=== PATIENT | female | born 1960 | race Caucasian/White ===

== ENCOUNTER 2020-05-14 14:10 | Inpatient (IN) | payer SELFPAY ==
[2020-05-14] VITALS (10 sets, daily range): BP systolic 125–172; BP diastolic 39–99; PULSE 57–78; RESP 14–21; TEMP 36.5–36.6; O2SAT 95–98; BMI 41.6
--- NOTE | 2020-05-14 14:29 | CTR_ITS ---
PROCEDURE INFORMATION: Exam: CT Head Without Contrast Exam date and time: 05/14/2020 2:35 PM Age: 59 years old Clinical indication: Weakness, facial; Additional info: Symptoms of acute stroke TECHNIQUE: Imaging protocol: Computed tomography of the head without contrast. Radiation optimization: All CT scans at this facility use at least one of these dose optimization techniques: automated exposure control; mA and/or kV adjustment per patient size (includes targeted exams where dose is matched to clinical indication); or iterative reconstruction. COMPARISON: No relevant prior studies available. RADIATION DOSE METRICS: Total DLP (mGy-cm): 740.21 FINDINGS: Brain: Normal. No hemorrhage. Unremarkable white matter. No mass effect. Cerebral ventricles: No ventriculomegaly. Bones/joints: Unremarkable. No acute fracture. Paranasal sinuses: There is mild mucosal thickening in the sinuses. Mastoid air cells: There is a trace amount of fluid in the left mastoid air cells. The right mastoid air cells are clear. Soft tissues: Unremarkable. CT/CT head wo con* [id number] IMPRESSION: No acute intracranial abnormality. Radiation Dose CTDIVOL = (mGy): DLP = 740.21 (mGy-cm)
--- NOTE | 2020-05-14 14:29 | ECG_ITS ---
[facility] Test Date: 2020-05-14 Pat Name: Temi Moulton Department: Room: Gender: Female Manager Investigations: : 1960 Requested By: Brittany Mariscal I Order Number: [id number] Reading MD: ADDIE PUENTE Measurements Intervals [place] Rate: 62 P: 47 [place]: 159 QRS: 48 QRSD: 71 T: 51 QT: 403 QTc: 412 Interpretive Statements SINUS RHYTHM WITH MARKED SINUS ARRHYTHMIA LOW QRS VOLTAGE IN PRECORDIAL LEADS [QRS DEFLECTION < 1.0 mV IN CHEST LEADS] No previous ECG available for comparison Electronically Signed On 05-14-2020 18:26:29 CDT by ADDIE PUENTE [id number]
--- NOTE | 2020-05-14 14:29 | XRR_ITS ---
PROCEDURE INFORMATION: Exam: XR Chest, 1 View Exam date and time: 05/14/2020 2:32 PM Age: 59 years old Clinical indication: Dyspnea; Additional info: Neuro symptoms TECHNIQUE: Imaging protocol: XR of the chest Views: 1 view. COMPARISON: No relevant prior studies available. FINDINGS: Lungs: There is interstitial prominence compatible with fibrosis, bronchitis, viral pneumonitis or mild interstitial edema. There is no lobar consolidation. A few scattered tiny calcified granulomata are noted. Pleural space: Unremarkable. No pleural effusion. No pneumothorax. Heart/Mediastinum: Unremarkable. No cardiomegaly. Bones/joints: No acute abnormality. XR/XR chest 1V portable [id number] IMPRESSION: There is interstitial prominence compatible with fibrosis, bronchitis, viral pneumonitis or mild interstitial edema.
--- NOTE | 2020-05-14 14:38 | W.ED.NEUROSD ---
HPI - Neuro Symptoms/Deficit General: Chief Complaint: Neuro Symptoms/Deficit Stated Complaint: possible stroke Time Seen by Provider: 05/14/20 14:21 Source: patient Mode of arrival: ambulatory Limitations: no limitations History of Present Illness: HPI Narrative: 59-year-old lady presents to the emergency department with complaints of neuro symptoms. She states that about 9 PM last night while at work she developed right-sided weakness especially in her lower extremity along with tingling. Symptoms improved so she just went home and did not seek care. This morning she had a continuation of the symptoms until decided to be seen in the emergency department Onset (ago): hour(s) (17) Last Observed Normal: 21:00 Location: right face, right arm and right leg History of same: No Severity: mild Quality: weak, tingling and improving Relieving factors: none Exacerbating factors: none Context: sudden onset On Anticoagulants: No Associated symptoms: Deny chest pain, cough, diaphoresis, fevers/chills, headache(s), anorexia, malaise, nausea, seizures, short of breath, syncope, tingling, vertigo, vomiting or weakness Treatments Prior to Arrival: none Review of Systems General: Reports: 10 or more systems reviewed and unremarkable except in HPI and below Const: Denies: malaise or diaphoresis Eyes: Denies: change in vision or blurry vision ENMT: Denies: throat pain, enlarged tonsils, odynophagia, hoarseness, mouth pain or swelling of lips/tongue Card: Denies: chest pain or syncope Resp: Denies: dyspnea, productive cough or non-productive cough GI: Denies: nausea or vomiting : Denies: flank pain, difficulty voiding, dysuria, urinary frequency, urinary urgency or urinary hesitancy Musc: Denies: neck pain, back pain or extremity swelling Skin/Breast: Denies: rash, pruritus or erythema Neuro: Denies: headache(s) or vertigo Endo: Denies: polyuria, polydipsia or tired all the time [facility] ED PFSH: Medical History (Updated 05/14/20 @ 22:14 by Brittany Mariscal MD, [facility]) No pertinent past medical history Surgical History (Updated 05/14/20 @ 17:36 by Chucky Pleitez MD) History of carpal tunnel surgery of right wrist Family History (Updated 05/14/20 @ 17:37 by Chucky Pleitez MD) Mother CAD (coronary artery disease) Chronic kidney disease (CKD) Lupus Father CAD (coronary artery disease) Brother CAD (coronary artery disease) Sister CAD (coronary artery disease) Social History (Updated 05/14/20 @ 17:36 by Chucky Pleitez MD) Smoking and tobacco status: current every day smoker Alcohol intake: never Substance/Drug Use: current Other substance/drug use details: Oxycodone for pain, does not prescribed NIH stroke score NIHSS: Level Of Consciousness - 1a: 0 Level Of Consciousness Questions - 1b: Both Correct Level Of Consciousness Commands - 1c: Both Correct Best Gaze - 2: Normal Visual Aguilar - 3: No Visual Loss Facial Palsy - 4: Minor Paralysis Motor Arm Right - 5: No Drift Motor Arm Left - 5: No Drift Motor Leg Right - 6: No Drift Motor Leg Left - 6: No Drift Limb Ataxia - 7: Absent Sensory - 8: Mild To Moderate Loss Best Language - 9: No Aphasia Dysarthia - 10: Normal Extinction And Inattention - 11: 0 Score: Total Score: 2 Physical Exam Const: COMMON NORMALS: no acute distress, average body habitus, patient oriented x3, no limitations, healthy appearing, alert and well nourished HENMT: COMMON NORMALS: normocephalic, atraumatic and moist oral mucous membranes HEAD & SCALP: normocephalic and atraumatic OTHER: Right facial droop Eye: COMMON NORMALS: Equal, round and reactive pupils present, EOMs intact bilaterally, conjunctivae normal and no scleral icterus CONJUNCTIVA: Yes conjunctivae normal PUPIL: Yes Equal, round and reactive pupils present Neck/C-Spine: COMMON NORMALS: full ROM, supple, no meningeal signs, no JVD and No carotid bruits Resp: COMMON NORMALS: normal respiratory effort, No retractions, No use of accessory muscles, clear to auscultation bilaterally and percussion normal AUSCULTATION: clear to auscultation bilaterally PERCUSSION: percussion normal Cardio: COMMON NORMALS: no JVD, regular rate, regular rhythm, S1 normal heart sound present, S2 normal heart sound present, No gallops present (Cardio), No clicks present (Cardio), No murmurs present (Cardio), No rub (Cardio) and Peripheral pulses 2+ throughout RATE: regular rate RHYTHM: regular rhythm HEART SOUNDS: S1 normal heart sound present and S2 normal heart sound present PERIPHERAL PULSES: Peripheral pulses 2+ throughout GI: COMMON NORMALS: Normal to inspection, nondistended, normoactive bowel sounds present, Soft to palpation, non-tender, No hepatosplenomegaly present, no masses and no bruits PALPATION: Yes Soft to palpation and Yes No hepatosplenomegaly present Extremity: COMMON NORMALS: normal to inspection, full ROM, capillary refill normal, no calf tenderness and no pedal edema Neuro: COMMON NORMALS: patient oriented x3 SENSORIUM/ORIENTATION: Yes alert MENINGEAL SIGNS: Yes no meningeal signs Skin: COMMON NORMALS: no rashes or lesions noted, no wounds, turgor normal, no jaundice, no petechiae and no mottling GENERAL SKIN EXAM: no rashes or lesions noted and turgor normal Course ED course: Patient remained stable in the emergency department, she was given intravenous calcium and potassium. She was advised to be admitted for further evaluation and management. The patient initially did not want to be admitted to the hospital but after I explained to her the seriousness of her illness and the potential consequences of non-treatment she agreed to stay. Consultations: Consultation #1: Dr. Sellers, hospitalist. He kindly accepted the patient to his service. Vital Signs: Vital signs: Vital Signs Temperature 97.9 F 05/14/20 19:38 Pulse Rate 64 05/14/20 19:48 Respiratory Rate 18 05/14/20 19:48 Blood Pressure 132/39 05/14/20 21:15 Pulse Oximetry 97 05/14/20 19:48 MDM - Neuro Symptoms/Deficit MDM Narrative: Medical decision making narrative: 59-year-old female patient who presents to the emergency department with concerns of a CVA that occurred yesterday. Evaluation in the emergency department showed right facial droop, NIHSS of 2, severe hypocalcemia, hypokalemia, and she was admitted to the hospital for further evaluation and management. Medical Records: Attestation: I reviewed the patient's medical records. Lab Data: Attestation: I reviewed the patient's lab results. Labs: Lab Results 05/14/20 05/14/20 05/14/20 Range/Units 14:34 14:34 14:34 WBC (4.0-10.0) 10^3/ uL RBC (4.1-5.3) 10^6/u L Hgb (11.5-15.3) g/dL Hct (37.0-47.0) % MCV (81-99) fL MCH (28.0-34.0) pg MCHC (30.0-36.0) g/dL RDW (12.1-15.1) % Plt Count (130-400) 10^3/c mm MPV (7.4-10.4) fL Neut % (Auto) % Lymph % (Auto) % [place] % (Auto) % Eos % (Auto) % Baso % (Auto) % Neut # (Auto) (1.8-7.7) 10^3/u L Lymph # (Auto) (0.8-4.8) 10^3/u L [place] # (Auto) (0.2-0.9) 10^3/u L Eos # (Auto) (0.0-0.8) 10^3/u L Baso # (Auto) (0.0-0.1) 10^3/u L Nucleated RBC % (a uto) % Nucleated RBCs # /100WBC PT (12.1-14.9) SECO NDS INR (0.8-1.2) APTT (23.9-36.7) SECO NDS Sodium (136-145) mmol/L Potassium (3.5-5.1) mmol/L Chloride (98-107) mmol/L Carbon Dioxide (22-29) mmol/L Anion Gap (5-19) BUN (6-20) mg/dL Creatinine (0.5-0.9) mg/dL GFR Calculation (90-130) mL/min Glucose (65-115) mg/dL Calculated Osmolal ity (285-295) mOsm/k g Calcium (8.5-10.5) mg/dL Phosphorus (2.5-4.5) mg/dL Magnesium (1.7-2.3) mg/dL Total Bilirubin (0.15-1.2) mg/dL AST (0-32) U/L ALT (0-33) U/L Alkaline Phosphata se (35-105) IU/L Total Protein (6.6-8.7) g/dL Albumin (3.5-5.2) g/dL Globulin (1.3-4.6) g/dL Urine Color Yellow (Yellow) Urine Appearance Clear (CLEAR) Urine pH 5 (5-7) Ur Specific Gravit y 1.010 (1.005-1.030) Urine Protein Neg (Negative) Urine Glucose (UA) Norm (Normal) Urine Ketones Negative (Negative) Urine Blood 2+ H (Negative) Urine Nitrate Negative (Negative) Urine Bilirubin Neg (Negative) Urine Urobilinogen Norm (Negative) mg/dL Ur Leukocyte Damari ase Negative (Negative) Urine RBC 0-4 H (0-2) /hpf Urine WBC Rare (0-5) /hpf Ur Squamous Epith Cells 0-4 H (0-5) /hpf Amorphous Sediment Not Reportable Urine Bacteria Trace (NONE) /hpf Ur Random Sodium 104 mmol/L Ur Random Potassiu m 14 mmol/L Ur Random Chloride 101 mmol/L Ur Random Calcium mg/dL Urine Opiates Scre en Negative (Negative) ng/mL Ur Barbiturates Sc reen Negative (Negative) ng/mL Ur Phencyclidine S crn Negative (Negative) ng/mL Ur Amphetamines Sc reen Negative (Negative) ng/mL U Benzodiazepines Scrn Negative (Negative) ng/mL Urine Cocaine Scre en Negative (Negative) ng/mL U Marijuana (THC) Screen Negative (Negative) ng/mL SARS-CoV-2 Ag (Rap id) (Negative) 05/14/20 05/14/20 05/14/20 Range/Units 14:34 14:35 14:35 WBC 6.2 (4.0-10.0) 10^3/ uL RBC 3.49 L (4.1-5.3) 10^6/u L Hgb 10.6 L (11.5-15.3) g/dL Hct 33.0 L (37.0-47.0) % MCV 94.6 (81-99) fL MCH 30.4 (28.0-34.0) pg MCHC 32.1 (30.0-36.0) g/dL RDW 12.6 (12.1-15.1) % Plt Count 172 (130-400) 10^3/c mm MPV 9.2 (7.4-10.4) fL Neut % (Auto) 48.0 % Lymph % (Auto) 40.8 % [place] % (Auto) 6.6 % Eos % (Auto) 2.6 % Baso % (Auto) 0.6 % Neut # (Auto) 2.98 (1.8-7.7) 10^3/u L Lymph # (Auto) 2.5 (0.8-4.8) 10^3/u L [place] # (Auto) 0.4 (0.2-0.9) 10^3/u L Eos # (Auto) 0.2 (0.0-0.8) 10^3/u L Baso # (Auto) 0.0 (0.0-0.1) 10^3/u L Nucleated RBC % (a uto) 0 % Nucleated RBCs # 0.0 /100WBC PT 14.90 (12.1-14.9) SECO NDS INR 1.14 (0.8-1.2) APTT 27.4 (23.9-36.7) SECO NDS Sodium (136-145) mmol/L Potassium (3.5-5.1) mmol/L Chloride (98-107) mmol/L Carbon Dioxide (22-29) mmol/L Anion Gap (5-19) BUN (6-20) mg/dL Creatinine (0.5-0.9) mg/dL GFR Calculation (90-130) mL/min Glucose (65-115) mg/dL Calculated Osmolal ity (285-295) mOsm/k g Calcium (8.5-10.5) mg/dL Phosphorus (2.5-4.5) mg/dL Magnesium (1.7-2.3) mg/dL Total Bilirubin (0.15-1.2) mg/dL AST (0-32) U/L ALT (0-33) U/L Alkaline Phosphata se (35-105) IU/L Total Protein (6.6-8.7) g/dL Albumin (3.5-5.2) g/dL Globulin (1.3-4.6) g/dL Urine Color (Yellow) Urine Appearance (CLEAR) Urine pH (5-7) Ur Specific Gravit y (1.005-1.030) Urine Protein (Negative) Urine Glucose (UA) (Normal) Urine Ketones (Negative) Urine Blood (Negative) Urine Nitrate (Negative) Urine Bilirubin (Negative) Urine Urobilinogen (Negative) mg/dL Ur Leukocyte Damari ase (Negative) Urine RBC (0-2) /hpf Urine WBC (0-5) /hpf Ur Squamous Epith Cells (0-5) /hpf Amorphous Sediment Urine Bacteria (NONE) /hpf Ur Random Sodium mmol/L Ur Random Potassiu m mmol/L Ur Random Chloride mmol/L Ur Random Calcium 7.6 mg/dL Urine Opiates Scre en (Negative) ng/mL Ur Barbiturates Sc reen (Negative) ng/mL Ur Phencyclidine S crn (Negative) ng/mL Ur Amphetamines Sc reen (Negative) ng/mL U Benzodiazepines Scrn (Negative) ng/mL Urine Cocaine Scre en (Negative) ng/mL U Marijuana (THC) Screen (Negative) ng/mL SARS-CoV-2 Ag (Rap id) (Negative) 05/14/20 05/14/20 05/14/20 Range/Units 14:35 14:35 15:25 WBC (4.0-10.0) 10^3/ uL RBC (4.1-5.3) 10^6/u L Hgb (11.5-15.3) g/dL Hct (37.0-47.0) % MCV (81-99) fL MCH (28.0-34.0) pg MCHC (30.0-36.0) g/dL RDW (12.1-15.1) % Plt Count (130-400) 10^3/c mm MPV (7.4-10.4) fL Neut % (Auto) % Lymph % (Auto) % [place] % (Auto) % Eos % (Auto) % Baso % (Auto) % Neut # (Auto) (1.8-7.7) 10^3/u L Lymph # (Auto) (0.8-4.8) 10^3/u L [place] # (Auto) (0.2-0.9) 10^3/u L Eos # (Auto) (0.0-0.8) 10^3/u L Baso # (Auto) (0.0-0.1) 10^3/u L Nucleated RBC % (a uto) % Nucleated RBCs # /100WBC PT (12.1-14.9) SECO NDS INR (0.8-1.2) APTT (23.9-36.7) SECO NDS Sodium 144 (136-145) mmol/L Potassium 2.4 L* (3.5-5.1) mmol/L Chloride 119 H (98-107) mmol/L Carbon Dioxide 18 L (22-29) mmol/L Anion Gap 9.4 (5-19) BUN 8 (6-20) mg/dL Creatinine 0.3 L (0.5-0.9) mg/dL GFR Calculation 228.5 H (90-130) mL/min Glucose 77 (65-115) mg/dL Calculated Osmolal ity 295 (285-295) mOsm/k g Calcium 5.5 L* (8.5-10.5) mg/dL Phosphorus 2.0 L (2.5-4.5) mg/dL Magnesium 1.3 L (1.7-2.3) mg/dL Total Bilirubin 0.3 (0.15-1.2) mg/dL AST 38 H (0-32) U/L ALT 43 H (0-33) U/L Alkaline Phosphata se 57 (35-105) IU/L Total Protein 4.0 L (6.6-8.7) g/dL Albumin 2.5 L (3.5-5.2) g/dL Globulin 1.5 (1.3-4.6) g/dL Urine Color (Yellow) Urine Appearance (CLEAR) Urine pH (5-7) Ur Specific Gravit y (1.005-1.030) Urine Protein (Negative) Urine Glucose (UA) (Normal) Urine Ketones (Negative) Urine Blood (Negative) Urine Nitrate (Negative) Urine Bilirubin (Negative) Urine Urobilinogen (Negative) mg/dL Ur Leukocyte Damari ase (Negative) Urine RBC (0-2) /hpf Urine WBC (0-5) /hpf Ur Squamous Epith Cells (0-5) /hpf Amorphous Sediment Urine Bacteria (NONE) /hpf Ur Random Sodium mmol/L Ur Random Potassiu m mmol/L Ur Random Chloride mmol/L Ur Random Calcium mg/dL Urine Opiates Scre en (Negative) ng/mL Ur Barbiturates Sc reen (Negative) ng/mL Ur Phencyclidine S crn (Negative) ng/mL Ur Amphetamines Sc reen (Negative) ng/mL U Benzodiazepines Scrn (Negative) ng/mL Urine Cocaine Scre en (Negative) ng/mL U Marijuana (THC) Screen (Negative) ng/mL SARS-CoV-2 Ag (Rap id) Negative (Negative) Imaging Data^: CXR: Attestation: I personally reviewed and interpreted this imaging study as follows: Radiologist's impression: [address] [place] [address] XRay Report Signed Patient: Sudhir Moulton #: [id number] : 2Acct#:[id number] Age/Sex: 59 / FADM Date: 05/14/20 Loc: ERRoom/Bed: Attending Dr: Ordering Provider/Ordering MD: Brittany Mariscal MD, [facility] [place] Date of Service: 05/14/20 Procedure(s): XR chest 1V portable [id number] Accession Number(s): [id number] Report Number: [id number] PROCEDURE INFORMATION: Exam: XR Chest, 1 View Exam date and time: 05/14/2020 2:32 PM Age: 59 years old Clinical indication: Dyspnea; Additional info: Neuro symptoms TECHNIQUE: Imaging protocol: XR of the chest Views: 1 view. COMPARISON: No relevant prior studies available. FINDINGS: Lungs: There is interstitial prominence compatible with fibrosis, bronchitis, viral pneumonitis or mild interstitial edema. There is no lobar consolidation. A few scattered tiny calcified granulomata are noted. Pleural space: Unremarkable. No pleural effusion. No pneumothorax. Heart/Mediastinum: Unremarkable. No cardiomegaly. Bones/joints: No acute abnormality. XR/XR chest 1V portable [id number] IMPRESSION: There is interstitial prominence compatible with fibrosis, bronchitis, viral pneumonitis or mild interstitial edema. Dictated By:Fior Snow Signed By:Breanne Snow Date/Time:05/14/20 1509 DD/ 1508 CT Head: Attestation: I personally reviewed and interpreted this imaging study as follows: Radiologist's impression: [address] [place] [address] CT Scan Report Signed Patient: Sudhir Moulton #: [id number] : 1960cct#:[id number] Age/Sex: 59 / FADM Date: 05/14/20 Loc: ERRoom/Bed: Attending Dr: Ordering Provider/Ordering MD: Brittany Mariscal MD, [facility] [place] Date of Service: 05/14/20 Procedure(s): CT head wo con* [id number] Accession Number(s): [id number] Report Number: [id number] PROCEDURE INFORMATION: Exam: CT Head Without Contrast Exam date and time: 05/14/2020 2:35 PM Age: 59 years old Clinical indication: Weakness, facial; Additional info: Symptoms of acute stroke TECHNIQUE: Imaging protocol: Computed tomography of the head without contrast. Radiation optimization: All CT scans at this facility use at least one of these dose optimization techniques: automated exposure control; mA and/or kV adjustment per patient size (includes targeted exams where dose is matched to clinical indication); or iterative reconstruction. COMPARISON: No relevant prior studies available. RADIATION DOSE METRICS: Total DLP (mGy-cm): 740.21 FINDINGS: Brain: Normal. No hemorrhage. Unremarkable white matter. No mass effect. Cerebral ventricles: No ventriculomegaly. Bones/joints: Unremarkable. No acute fracture. Paranasal sinuses: There is mild mucosal thickening in the sinuses. Mastoid air cells: There is a trace amount of fluid in the left mastoid air cells. The right mastoid air cells are clear. Soft tissues: Unremarkable. CT/CT head wo con* [id number] IMPRESSION: No acute intracranial abnormality. Radiation Dose CTDIVOL = (mGy): DLP = 740.21 (mGy-cm) Dictated By:Fior Snow Signed By:Breanne Snow Date/Time:05/14/20 150 DD/ [address]: Attestation: I personally reviewed and interpreted this imaging study as follows: Radiologist's impression: [address] [address] [address] Scan Report Signed Patient: Sudhir Moulton #: [id number] : 1960cct#:[id number] Age/Sex: 59 / FADM Date: 05/14/20 [facility] Dr: Ordering Provider/Ordering MD: Chucky Pleitez MD Date of Service: 05/14/20 Procedure(s): CT angio headneck* [id number] Accession Number(s): [id number] Report Number: [id number] PROCEDURE INFORMATION: Exam: CT Angiography Head With Contrast Exam date and time: 05/14/2020 5:31 PM Age: 59 years old Clinical indication: Visual disturbance and weakness; Other visual defect; Patient HX: C/O R sided weakness w facial droop and vision issues; Additional info: Right facial drrop, stroke TECHNIQUE: Imaging protocol: Computed tomography angiography of the head with intravenous contrast. 3D rendering (Not supervised by radiologist): MIP and/or 3D reconstructed images were created by the technologist. Radiation optimization: All CT scans at this facility use at least one of these dose optimization techniques: automated exposure control; mA and/or kV adjustment per patient size (includes targeted exams where dose is matched to clinical indication); or iterative reconstruction. Contrast material: OMNI 350; Contrast volume: 95 ml; Contrast route: INTRAVENOUS (IV); COMPARISON: CT head wo con* [id number] 05/14/2020 2:43 PM RADIATION DOSE METRICS: Total DLP (mGy-cm): 2111.2 FINDINGS: ANTERIOR CIRCULATION: Right internal carotid artery: Calcified plaque in the cavernous portion of the right internal carotid artery without significant stenosis. Right middle cerebral artery: Unremarkable. No occlusion or significant stenosis. No aneurysm. Right anterior cerebral artery: Unremarkable. No occlusion or significant stenosis. No aneurysm. Left internal carotid artery: Calcified plaque in the cavernous portion of the left internal carotid artery without significant stenosis. Left middle cerebral artery: Unremarkable. No occlusion or significant stenosis. No aneurysm. Left anterior cerebral artery: Unremarkable. No occlusion or significant stenosis. No aneurysm. POSTERIOR CIRCULATION: Right vertebral artery: Unremarkable. No occlusion or significant stenosis. No aneurysm. Left vertebral artery: Unremarkable. No occlusion or significant stenosis. No aneurysm. Basilar artery: Unremarkable. No occlusion or significant stenosis. No aneurysm. Right posterior cerebral artery: Unremarkable. No occlusion or significant stenosis. No aneurysm. Left posterior cerebral artery: Unremarkable. No occlusion or significant stenosis. No aneurysm. Brain: No definite mass, mass effect, or midline shift. Cerebral ventricles: Normal. No ventriculomegaly. Bones/joints: Unremarkable. No acute fracture. Soft tissues: Unremarkable. IMPRESSION: 1. No large artery occlusion or stenosis. PROCEDURE INFORMATION: Exam: CT Angiography Neck With Contrast Exam date and time: 05/14/2020 5:31 PM Age: 59 years old Clinical indication: Visual disturbance and weakness; Other visual defect; Patient HX: C/O R sided weakness w facial droop and vision issues; Additional info: Right facial drrop, stroke TECHNIQUE: Imaging protocol: Computed tomography angiography of the neck with intravenous contrast. 3D rendering (Not supervised by radiologist): MIP and/or 3D reconstructed images were created by the technologist. Radiation optimization: All CT scans at this facility use at least one of these dose optimization techniques: automated exposure control; mA and/or kV adjustment per patient size (includes targeted exams where dose is matched to clinical indication); or iterative reconstruction. Contrast material: OMNI 350; Contrast volume: 95 ml; Contrast route: INTRAVENOUS (IV); COMPARISON: CT head wo con* [id number] 05/14/2020 2:43 PM RADIATION DOSE METRICS: Total DLP (mGy-cm): 2111.2 FINDINGS: Right common carotid artery: No stenosis. No dissection or occlusion. Right internal carotid artery: Calcified plaque in the proximal right internal carotid artery with 0% stenosis. Calcified plaque in the proximal right internal carotid artery with 0% stenosis. Right external carotid artery: Calcified plaque with 30% stenosis in the proximal right external carotid artery. Right vertebral artery: No stenosis. No dissection or occlusion. Left common carotid artery: No stenosis. No dissection or occlusion. Left internal carotid artery: No stenosis of the extracranial segment. No dissection or occlusion. Left external carotid artery: Calcified plaque with 20% stenosis in the proximal left external carotid artery. Left vertebral artery: The left vertebral artery originates from the aortic arch. Mild plaque proximally without stenosis. Bones/joints: No acute fracture. Soft tissues: Normal. No significant soft tissue swelling. Lymph nodes: Enlarged left intraparotid lymph node measuring 2.1 cm. Lungs: 3 mm nodules in the upper lobes. CT/CT angio headneck* [id number] IMPRESSION: 1. Calcified plaque in the proximal internal carotid arteries without significant stenosis. 2. 2.1 cm left intraparotid lymph node or possible mass. This could be inflammatory or neoplastic. 3. 3 mm upper lobe nodules. For patients at low risk (minimal or absent history of smoking and of other known risk factors), no routine follow-up is indicated. For patients at high risk (history of smoking or of other known risk factors), consider optional CT Chest at 12 months. (Reference: Nadeen) References: Nadeen Novoa, et al. Guidelines for Management of Incidental Pulmonary Nodules Detected on CT Images: From the Fleischner Society 2017. Radiology. 2017;284(1):228-243. REFERENCES: NASCET CRITERIA. The degree of internal carotid artery stenosis is based on NASCET criteria. Normal is no stenosis. Mild is less than 50% stenosis. Moderate is 50-69% stenosis. Severe is 70% to 99% stenosis. Total occlusion is no detectable patent lumen. Radiation Dose CTDIVOL = (mGy): DLP = 2111.2~2111.2 (mGy-cm) Dictated By:Cricket Carrasco Signed By:Cricket CarrascoSignsedrick Date/Time:05/14/201807 DD/ 06 EKG Data^: EKG 1: Attestation: I personally reviewed and interpreted this EKG as follows: EKG interpretation date: 05/14/20 EKG interpretation time: 14:58 Prior EKG tracings: available for review Interpretation: sinus rhythm with sinus arrhthmia HR [address] changes Discharge Plan Discharge Patient Disposition: Placed in Observation Admit Provider: Chucky Pleitez Clinical Impression: Left-sided cerebrovascular accident (CVA), Hypocalcemia, Hypokalemia Condition: Good Interventions: ED Discharge Assessment Last Done: 05/14/20 19:32 ED Charges Last Done: 05/14/20 19:32 Discharge Date/Time: 05/14/20 19:33 Coding Level of Care Code ED Shell Coremaker for Chg Fwd Exam Comprehensive
[2020-05-14 15:04] LABS: Basophils % 0.6 %; Eosinophils # 0.2 10^3/uL (0.0-0.8); Eosinophils % 2.6 %; Hemoglobin 10.6 g/dL (11.5-15.3); Lymphocytes # 2.5 10^3/uL (0.8-4.8); Lymphocytes % 40.8 %; Mean Corpuscular HGB Conc 32.1 g/dL (30.0-36.0); Mean Corpuscular Hemoglobin 30.4 pg (28.0-34.0); Mean Corpuscular Volume 94.6 fL (81-99); Mean Platelet Volume 9.2 fL (7.4-10.4); Monocytes # 0.4 10^3/uL (0.2-0.9); Monocytes % 6.6 %; Neutrophils # 2.98 10^3/uL (1.8-7.7); Nucleated Red Blood Cells % 0 %; Platelet Count 172 10^3/cmm (130-400); Red Blood Count 3.49 10^6/uL (4.1-5.3); Red Cell Distribution Width 12.6 % (12.1-15.1); White Blood Count 6.2 10^3/uL (4.0-10.0)
[2020-05-14 15:13] LABS: Amphetamines Screen Urine Negative (Negative); Barbiturates Screen Urine Negative (Negative); Benzodiazepines Screen Urine Negative (Negative); Cocaine Screen Urine Negative (Negative); Opiate Screen Urine Negative (Negative); PCP Screen Urine Negative (Negative); THC Screen Urine Negative (Negative)
[2020-05-14 15:24] LABS: INR 1.14 (0.8-1.2)
[2020-05-14 15:25] LABS: Partial Thromboplastin Time 27.4 SECONDS (23.9-36.7)
[2020-05-14 15:32] LABS: Add Urine Culture? No; Add Urine Microscopic? YES; Bacteria Urine TRACE /hpf; Bilirubin Urine Neg (Negative); Blood Urine 2+ (Negative); Glucose Urine UA Norm (Normal); Ketones Urine Negative (Negative); Leukocyte Esterase Urine Negative (Negative); Nitrate Urine Negative (Negative); Protein Urine Neg (Negative); RBC Urine 0-4 /hpf (0-2); Squamous Epithelial Cell Urine 0-4 /hpf (0-5); Urine Appearance Clear (CLEAR); Urine Color Yellow (Yellow); Urobilinogen Urine Norm (Negative); WBC Urine RARE /hpf (0-5); pH Urine 5 (5-7)
[2020-05-14 15:36] LABS: Alanine Aminotransferase 43 U/L (0-33); Albumin Level 2.5 g/dL (3.5-5.2); Alkaline Phosphatase 57 IU/L (35-105); Anion Gap 9.4 (5-19); Aspartate Amino Transferase 38 U/L (0-32); Blood Urea Nitrogen 8 mg/dL (6-20); Carbon Dioxide 18 mmol/L (22-29); Chloride 119 mmol/L (98-107); Globulin 1.5 g/dL (1.3-4.6); Glomerular Filtration Rate 228.5 mL/min (90-130); Glucose 77 mg/dL (65-115); Osmolality Calculated 295 mOsm/kg (285-295); Sodium 144 mmol/L (136-145); Total Bilirubin 0.3 mg/dL (0.15-1.2)
[2020-05-14 16:00] LABS: Calcium 5.5 mg/dL (8.5-10.5); Potassium 2.4 mmol/L (3.5-5.1)
[2020-05-14 16:02] LABS: SARS Covid-2 Antigen Negative (Negative)
[2020-05-14 16:41] LABS: Magnesium 1.3 mg/dL (1.7-2.3)
[2020-05-14] MEDS: potassium chloride premix 100 ML 25 MEQ IV (17:03)
[2020-05-14] MEDS: calcium gluconate 0.1 gm/mL 10% SDV 10mL 1 GM IVP (17:03)
--- NOTE | 2020-05-14 17:20 | CTR_ITS ---
PROCEDURE INFORMATION: Exam: CT Angiography Head With Contrast Exam date and time: 05/14/2020 5:31 PM Age: 59 years old Clinical indication: Visual disturbance and weakness; Other visual defect; Patient HX: C/O R sided weakness w facial droop and vision issues; Additional info: Right facial drrop, stroke TECHNIQUE: Imaging protocol: Computed tomography angiography of the head with intravenous contrast. 3D rendering (Not supervised by radiologist): MIP and/or 3D reconstructed images were created by the technologist. Radiation optimization: All CT scans at this facility use at least one of these dose optimization techniques: automated exposure control; mA and/or kV adjustment per patient size (includes targeted exams where dose is matched to clinical indication); or iterative reconstruction. Contrast material: OMNI 350; Contrast volume: 95 ml; Contrast route: INTRAVENOUS (IV); COMPARISON: CT head wo con* [id number] 05/14/2020 2:43 PM RADIATION DOSE METRICS: Total DLP (mGy-cm): 2111.2 FINDINGS: ANTERIOR CIRCULATION: Right internal carotid artery: Calcified plaque in the cavernous portion of the right internal carotid artery without significant stenosis. Right middle cerebral artery: Unremarkable. No occlusion or significant stenosis. No aneurysm. Right anterior cerebral artery: Unremarkable. No occlusion or significant stenosis. No aneurysm. Left internal carotid artery: Calcified plaque in the cavernous portion of the left internal carotid artery without significant stenosis. Left middle cerebral artery: Unremarkable. No occlusion or significant stenosis. No aneurysm. Left anterior cerebral artery: Unremarkable. No occlusion or significant stenosis. No aneurysm. POSTERIOR CIRCULATION: Right vertebral artery: Unremarkable. No occlusion or significant stenosis. No aneurysm. Left vertebral artery: Unremarkable. No occlusion or significant stenosis. No aneurysm. Basilar artery: Unremarkable. No occlusion or significant stenosis. No aneurysm. Right posterior cerebral artery: Unremarkable. No occlusion or significant stenosis. No aneurysm. Left posterior cerebral artery: Unremarkable. No occlusion or significant stenosis. No aneurysm. Brain: No definite mass, mass effect, or midline shift. Cerebral ventricles: Normal. No ventriculomegaly. Bones/joints: Unremarkable. No acute fracture. Soft tissues: Unremarkable. IMPRESSION: 1. No large artery occlusion or stenosis. PROCEDURE INFORMATION: Exam: CT Angiography Neck With Contrast Exam date and time: 05/14/2020 5:31 PM Age: 59 years old Clinical indication: Visual disturbance and weakness; Other visual defect; Patient HX: C/O R sided weakness w facial droop and vision issues; Additional info: Right facial drrop, stroke TECHNIQUE: Imaging protocol: Computed tomography angiography of the neck with intravenous contrast. 3D rendering (Not supervised by radiologist): MIP and/or 3D reconstructed images were created by the technologist. Radiation optimization: All CT scans at this facility use at least one of these dose optimization techniques: automated exposure control; mA and/or kV adjustment per patient size (includes targeted exams where dose is matched to clinical indication); or iterative reconstruction. Contrast material: OMNI 350; Contrast volume: 95 ml; Contrast route: INTRAVENOUS (IV); COMPARISON: CT head wo con* [id number] 05/14/2020 2:43 PM RADIATION DOSE METRICS: Total DLP (mGy-cm): 2111.2 FINDINGS: Right common carotid artery: No stenosis. No dissection or occlusion. Right internal carotid artery: Calcified plaque in the proximal right internal carotid artery with 0% stenosis. Calcified plaque in the proximal right internal carotid artery with 0% stenosis. Right external carotid artery: Calcified plaque with 30% stenosis in the proximal right external carotid artery. Right vertebral artery: No stenosis. No dissection or occlusion. Left common carotid artery: No stenosis. No dissection or occlusion. Left internal carotid artery: No stenosis of the extracranial segment. No dissection or occlusion. Left external carotid artery: Calcified plaque with 20% stenosis in the proximal left external carotid artery. Left vertebral artery: The left vertebral artery originates from the aortic arch. Mild plaque proximally without stenosis. Bones/joints: No acute fracture. Soft tissues: Normal. No significant soft tissue swelling. Lymph nodes: Enlarged left intraparotid lymph node measuring 2.1 cm. Lungs: 3 mm nodules in the upper lobes. CT/CT angio headneck* [id number] IMPRESSION: 1. Calcified plaque in the proximal internal carotid arteries without significant stenosis. 2. 2.1 cm left intraparotid lymph node or possible mass. This could be inflammatory or neoplastic. 3. 3 mm upper lobe nodules. For patients at low risk (minimal or absent history of smoking and of other known risk factors), no routine follow-up is indicated. For patients at high risk (history of smoking or of other known risk factors), consider optional CT Chest at 12 months. (Reference: Nadeen) References: Nadeen Novoa, et al. Guidelines for Management of Incidental Pulmonary Nodules Detected on CT Images: From the Fleischner Society 2017. Radiology. 2017;284(1):228-243. REFERENCES: NASCET CRITERIA. The degree of internal carotid artery stenosis is based on NASCET criteria. Normal is no stenosis. Mild is less than 50% stenosis. Moderate is 50-69% stenosis. Severe is 70% to 99% stenosis. Total occlusion is no detectable patent lumen. Radiation Dose CTDIVOL = (mGy): DLP = 2111.2~2111.2 (mGy-cm)
[2020-05-14 17:22] LABS: Ionized Calcium 1.1 mmol/L (1.1-1.4)
--- NOTE | 2020-05-14 17:29 | P.HP_ITS ---
Providers/Chief Complaint Chief Complaint: possible stroke History of Present Illness Temi Moulton is a 59 year old female with no significant past medical history, history of smoking, who presents to [facility] due to a 24-hour history of right-sided blurry vision, right lower extremity heaviness, right arm paresthesias, perioral numbness, generalized weakness. Patient tells me that she does not have health insurance, has not seen a physician in many years. She denies any significant medical history. No recent hospitalizations. She tells me that yesterday she was working at [employer] at roughly 8 PM she noticed that her right leg felt heavy, she was having difficulty maneuvering, she just did not feel right, she sat down, at that time her right hand felt numbness and tingling, she had perioral numbness, and she had right-sided blurry vision and difficulty seeing out of the right eye. She decided to go home, and her sister picked her up from home, which she got home, a few hours after at the right lower extremity weakness had returned back to normal, her right blurry return to near normal, but still has some right hand numbness and perioral numbness. Ansley ent went to bed. She woke up in the morning, nothing hard the ordinary, still has some perioral numbness and right hand numbness, was able to carry out her daily activities, her sister checked up on her, when she noticed right facial drooping, and some mild slurring of her speech, so she advised her to come to the emergency room. Here in the ER patient's NIH stroke scale is 2, she is out of TPA window, out of window for endovascular retrieval, she had a mild right facial droop, very mild slurring of her speech, no other focal neurologic deficits, head CT was negative for acute stroke or intracranial hemorrhage, no atrial fibrillation events, she was also found to be severely hypocalcemic, hypokalemic, hypomagnesemic. Patient denies any significant personal or family history of genetic renal disease, no history of thyroid surgery, no history of radiation treatment, no history of neck surgery. She does have a family history of lupus her mom has lupus. In addition she has an extensive cardiac history in her family, her niece had cardiac surgery when she was 13, she is unsure why. Her sister had double bypass in her 40s. Her brother had cardiac surgery in his early 40s to 50s. Her mom has extensive cardiac history. Her father from cardiac disease. She does state that intermittently she is noted some chest discomfort and palpitations. No more shortness of breath with exertion, no bilateral external edema, no orthopnea, no paroxysmal nocturnal dyspnea. No recent fevers. No recent chills. She does report that about a month ago she had a spider bite to the right eyebrow, was put on Bactrim, she is finished the Bactrim, spider bite has improved. No history of brown recluse spider bite. No history of black spider bite . Review of Systems Const: Denies: fever(s), chills, fatigue or malaise Eyes: Reports: change in vision and blurry vision ENMT: Denies: nasal congestion Card: Reports: palpitations and lightheadedness; Denies: chest pain, edema or dyspnea on exertion Resp: Denies: dyspnea, productive cough, non-productive cough or wheezing GI: Denies: abdominal pain, nausea, vomiting, hematemesis, diarrhea, constipation, hematochezia or melena : Denies: flank pain, dysuria or urinary frequency Musc: Denies: neck pain or back pain Skin/Breast: Denies: rash Neuro: Denies: headache(s), dizziness or vertigo Psych: Denies: anxiety or depression Endo: Denies: polyuria or polydipsia Medications/Allergies Home Medications Medication Instructions Recorded Confirmed Last Taken Type No Known Home Medications 05/14/20 05/14/20 Unknown History Allergies Allergy/AdvReac Type Severity Reaction Status Date / Time clindamycin Allergy ADR-Itching Verified 05/14/20 15:00 Additional Medication Information She uses oxycodone for back pain PFSH Acute PFSH: Medical History (Updated 05/14/20 @ 17:36 by Chucky Pleitez MD) No pertinent past medical history Surgical History (Updated 05/14/20 @ 17:36 by Chucky Pleitez MD) History of carpal tunnel surgery of right wrist Family History (Updated 05/14/20 @ 17:37 by Chucky Pleitez MD) Mother CAD (coronary artery disease) Chronic kidney disease (CKD) Lupus Father CAD (coronary artery disease) Brother CAD (coronary artery disease) Sister CAD (coronary artery disease) Social History (Updated 05/14/20 @ 17:36 by Chucky Pleitez MD) Smoking and tobacco status: current every day smoker Alcohol intake: never Substance/Drug Use: current Other substance/drug use details: Oxycodone for pain, does not prescribed Vitals/I&O/Wt Last Vital Signs Temp 97.7 F 05/14/20 14:20 Pulse 71 05/14/20 17:01 Resp 21 H 05/14/20 17:01 BP 158/90 05/14/20 17:01 Pulse Ox 98 05/14/20 17:01 Weight last 48 hrs Weight 106.594 kg Physical Exam Const: COMMON NORMALS: no acute distress and patient oriented x3 GENERAL APPEARANCE: cooperative and comfortable HENMT: COMMON NORMALS: normocephalic OTHER: Mild right facial droop Eye: COMMON NORMALS: Equal, round and reactive pupils present, EOMs intact bilaterally and no papilledema PUPIL: Yes Equal, round and reactive pupils present Neck/C-Spine: COMMON NORMALS: full ROM, no lymphadenopathy, no JVD and Thyroid normal THYROID: Thyroid normal Lymph: LYMPHATIC: lymphadenopathy (Bilateral cervical lymphadenopathy) Resp: COMMON NORMALS: normal respiratory effort, No retractions, No use of accessory muscles and clear to auscultation bilaterally AUSCULTATION: clear to auscultation bilaterally Cardio: COMMON NORMALS: no JVD, regular rate, regular rhythm, S1 normal heart sound present, S2 normal heart sound present, No gallops present (Cardio), No clicks present (Cardio) and No murmurs present (Cardio) RATE: regular rate RHYTHM: regular rhythm HEART SOUNDS: S1 normal heart sound present and S2 normal heart sound present GI: COMMON NORMALS: Normal to inspection, nondistended, normoactive bowel sounds present, Soft to palpation, non-tender and No hepatosplenomegaly present PALPATION: Yes Soft to palpation and Yes No hepatosplenomegaly present Extremity: COMMON NORMALS: normal to inspection, full ROM and no pedal edema Neuro: COMMON NORMALS: patient oriented x3, CN's II-XII intact bilaterally, moves all extremities and no focal motor deficits Psych: COMMON NORMALS: mental status grossly normal, Normal thought process present and cooperative THOUGHT PROCESS: Normal thought process present Data : 05/14/20 14:35 05/14/20 14:35 A&P Assessment and plan (1) Left-sided cerebrovascular accident (CVA): -Persistent right facial droop mild, mild slurring of speech -CT of the head negative for acute hemorrhage, acute stroke, has sinus arrhythmia on EKG. -Out of TPA window, out of endovascular procedure window PLAN: -Order CT angiogram of the head and neck -Ordered cardic echocardiogram -Telemetry monitoring -Neurochecks -Bedside swallow eval, if passed can have regular diet -PT OT -Allow for permissive hypertension for the next 24 to 48 hours, treat systolic blood pressure greater than 220, diastolic blood pressure of greater than 110 -Give normal saline -Full code -Lovenox for DVT prophylaxis - Status: Acute (2) Arrhythmia: -I am concerned as patient is telemetry has intermittent arrhythmia, heart rates not fast, but it does look irregular, could be sinus arrhythmia -Given her significant electrolyte abnormalities, would prefer for her to go to cardiac stepdown unit, just in case she has A. fib events, as she prone given her electrolyte abnormalities Status: Acute (3) Hypomagnesemia: -Will replace magnesium levels -Measure urine magnesium Status: Acute (4) Hypokalemia: -Will replace potassium level -Monitor QRS, IL intervals, QT -Monitor for arrhythmia -Urine potassium level Status: Acute (5) Hypocalcemia: -Etiology unclear at this point -PTH, vitamin D, ESR, CRP, HEIDI, rheumatoid -Does have a lot of cervical lymphadenopathy, will do ultrasound of the neck -Replace calcium levels -Measure urine calcium -Monitor QT interval Status: Acute (6) Hypertension: Status: Acute Attestations Medical Necessity Statement*: Patient requires hospitalization, inpatient, gre ater than 2 midnights, for left-sided CVA, arrhythmia, hypomagnesemia hypocalcemia, hypokalemia Coding Level of Care Code Acute [employer] [facility] Fwd Diagnoses Left-sided cerebrovascular accident (CVA) I63.9 Arrhythmia I49.9 Hypomagnesemia E83.42 Hypokalemia E87.6 Hypocalcemia E83.51 Hypertension I10
[2020-05-14] MEDS: magnesium sulfate premix 2 GM/50 ML PIGGYBACK IV (17:45)
[2020-05-14] MEDS: iohexol 350 mg/mL 100 mL Btl IV (17:47)
[2020-05-14 18:04] LABS: Erythrocyte Sedimentation Rate 25 mm/hr (0-15)
[2020-05-14 18:27] LABS: Alanine Aminotransferase 77 U/L (0-33); Albumin Level 4.2 g/dL (3.5-5.2); Alkaline Phosphatase 99 IU/L (35-105); Blood Urea Nitrogen 11 mg/dL (6-20); Calcium 9.3 mg/dL (8.5-10.5); Carbon Dioxide 25 mmol/L (22-29); Chloride 100 mmol/L (98-107); Globulin 2.5 g/dL (1.3-4.6); Glomerular Filtration Rate 126.7 mL/min (90-130); Glucose 90 mg/dL (65-115); Osmolality Calculated 279 mOsm/kg (285-295); Sodium 135 mmol/L (136-145); Total Bilirubin 0.5 mg/dL (0.15-1.2); Total Protein 6.7 g/dL (6.6-8.7)
[2020-05-14 18:30] LABS: Anion Gap 14.5 (5-19)
[2020-05-14 18:31] LABS: Aspartate Amino Transferase 78 U/L (0-32); Potassium 4.5 mmol/L (3.5-5.1)
[2020-05-14 18:38] LABS: Calcium 9.4 mg/dL (8.5-10.5); Parathyroid Hormone 62.9 pg/mL (15-65)
[2020-05-14 18:41] LABS: Calcium Urine Random 7.6 mg/dL
[2020-05-14 18:43] LABS: Potassium, Radom Urine 14 mmol/L; Urine Random Chloride 101 mmol/L; Urine Random Sodium 104 mmol/L
[2020-05-14 18:47] LABS: 25 Hydroxy Vitamin D 14 ng/mL (30-100); C Reactive Protein 5.5 mg/L (0.0-4.9)
--- NOTE | 2020-05-14 20:12 | PC.NURSE ---
Patient received from ED via wheelchair. Patient to ambulate with standby assist only. NIH assessment indicated very mild right facial droop and barely noticeable right hand weakness. No gait disturbance, speech is clear, visual macdonald without impairment. Patient request food stating, I have not eaten since early this morning. Contacted Dr Pleitez and informed him of patient current condition and request. Received telephone order to perform bedside swallow and if NO adverse symptoms may start patient on Cardiac Diet. Bedside swallow was performed. NO indication of choking, drooling or other difficulties observed. Patient expressed thanks and reported no other adverse problems with swalling. Provided patient sandwich and something to drink. Remained at bedside during admission process. No evidence of choking while eating at this time. No other distresses observed. Admission completed as documented.
--- NOTE | 2020-05-14 20:54 | PC.NURSE ---
Addendum entered by Farzana Rutherford RN 05/14/20 21:15: Current BP 132/39 Original Note: Labetolol not given at this time. BP not within designated parameters at this time.
[2020-05-14 21:07] LABS: Troponin(5th) Baseline 6 ng/L (0-10)
[2020-05-14] MEDS: sodium chloride 0.9% 1,000 ML 100 ML IV (21:11)
[2020-05-14] MEDS: enoxaparin 40 mg/0.4 mL Syringe SUBCUT (21:11)
[2020-05-14 21:16] LABS: Creatine Phosphokinase 96 U/L (26-192); Thyroid Stimulating Hormone 1.49 uIU/mL (0.27-4.20)
[2020-05-14 21:31] LABS: Magnesium 2.5 mg/dL (1.7-2.3)
--- NOTE | 2020-05-14 22:30 | PC.NURSE ---
Assessed tube feed residual and had 10ml return. Adjusted tube feed from 30ml/hr to 40ml/hr. Patient tolerating well.
[2020-05-14 22:42] LABS: Estmated Average Glucose 128; Hemoglobin A1C 6.1 % (4.0-6.0)
[2020-05-14 22:52] LABS: Troponin 5 2HR Delta 0 ABS# (0-10)
--- NOTE | 2020-05-14 23:21 | ECG_ITS ---
[facility] Test Date: 2020-05-15 Pat Name: Temi Moulton Department: Room: 106 Gender: Female Pot Operator: : 1960 Requested By: Chucky Pleitez Order Number: [id number] Reading MD: ADDIE PUENTE Measurements Intervals [place] Rate: 59 P: 59 TX: 172 QRS: 54 QRSD: 84 T: 64 QT: 421 QTc: 420 Interpretive Statements SINUS BRADYCARDIA WITH MARKED SINUS ARRHYTHMIA LOW QRS VOLTAGE IN PRECORDIAL LEADS [QRS DEFLECTION < 1.0 mV IN CHEST LEADS] Compared to ECG 05/14/2020 14:57:55 Sinus rhythm no longer present Electronically Signed On 05-15-2020 19:36:25 FARMWORK[employer] by ADDIE PUENTE [email or web address] [email or web address].[email or web address]/[id number]
--- NOTE | 2020-05-14 23:59 | PC.NURSE ---
Patient resting in bed with HR mid to low 50s. Current BP 125/41. Patient denies any needs or discomforts at this time. Labetolol not given based on order parameters. No distress observed.
--- NOTE | 2020-05-15 01:46 | PC.NURSE ---
Patient's heart rate drops to the low 40s during sleep not sustained. Heart rate stays mostly at 59-60. Assessed patient. Patient denies any dizziness, lightheadedness or other discomforts. No distress observed. Informed Dr Garcia with no new orders received. Will continue to monitor.
[2020-05-15 03:30] VITALS: BP 112/64; PULSE 57; RESP 16; TEMP 36.6; O2SAT 93
--- NOTE | 2020-05-15 03:39 | PC.NURSE ---
Labetolol not administered due to current BP 112/64 does not meet parameters as ordered.
[2020-05-15 04:19] LABS: Ionized Calcium 1.2 mmol/L (1.1-1.4)
[2020-05-15] MEDS: sodium chloride 0.9% 1,000 ML 100 ML IV (04:54)
[2020-05-15 05:03] LABS: Basophils # 0.1 10^3/uL (0.0-0.1); Basophils % 0.6 %; Eosinophils # 0.3 10^3/uL (0.0-0.8); Eosinophils % 3.7 %; Hematocrit 44.9 % (37.0-47.0); Hemoglobin 14.7 g/dL (11.5-15.3); Lymphocytes # 3.6 10^3/uL (0.8-4.8); Mean Corpuscular HGB Conc 32.7 g/dL (30.0-36.0); Mean Corpuscular Hemoglobin 29.9 pg (28.0-34.0); Mean Corpuscular Volume 91.3 fL (81-99); Monocytes # 0.5 10^3/uL (0.2-0.9); Monocytes % 5.8 %; Neutrophils # 3.91 10^3/uL (1.8-7.7); Neutrophils % 46.5 %; Nucleated Red Blood Cells % 0 %; Platelet Count 258 10^3/cmm (130-400); Red Blood Count 4.92 10^6/uL (4.1-5.3); Red Cell Distribution Width 12.6 % (12.1-15.1); White Blood Count 8.4 10^3/uL (4.0-10.0)
[2020-05-15 05:33] LABS: Alanine Aminotransferase 65 U/L (0-33); Albumin Level 3.9 g/dL (3.5-5.2); Alkaline Phosphatase 94 IU/L (35-105); Anion Gap 15.6 (5-19); Aspartate Amino Transferase 58 U/L (0-32); Blood Urea Nitrogen 10 mg/dL (6-20); Calcium 9.3 mg/dL (8.5-10.5); Carbon Dioxide 24 mmol/L (22-29); Chloride 104 mmol/L (98-107); Chol HDL Ratio 8.89 mg/dL (0.0-4.40); Cholesterol 249 mg/dL (0-200); Globulin 2.1 g/dL (1.3-4.6); Glomerular Filtration Rate 102.7 mL/min (90-130); Glucose 102 mg/dL (65-115); HDL Cholesterol 28 mg/dL (60-100); LDL Cholesterol Calculated 172 mg/dL (50-129); LDL HDL Ratio 6.14 RATIO (0.00-3.22); Magnesium 2.1 mg/dL (1.7-2.3); Osmolality Calculated 287 mOsm/kg (285-295); Phosphorus 4.2 mg/dL (2.5-4.5); Potassium 4.6 mmol/L (3.5-5.1); Sodium 139 mmol/L (136-145); Total Bilirubin 0.4 mg/dL (0.15-1.2); Triglycerides 246 mg/dL (0-150)
[2020-05-15 05:35] LABS: Troponin T (5th) Once 6 ng/L (0-10)
--- NOTE | 2020-05-15 06:00 | ECG_ITS ---
[facility] Test Date: 2020-05-15 Pat Name: Temi Moulton Department: Room: 106 Gender: Female Peanut Salter: : 1960 Requested By: Chucky Pleitez Order Number: [id number] Reading MD: ADDIE PUENTE Measurements Intervals [place] Rate: 58 P: 58 NH: 171 QRS: 53 QRSD: 83 T: 59 QT: 438 QTc: 432 Interpretive Statements SINUS BRADYCARDIA WITH MARKED SINUS ARRHYTHMIA LOW QRS VOLTAGE IN PRECORDIAL LEADS [QRS DEFLECTION < 1.0 mV IN CHEST LEADS] Compared to ECG 05/15/2020 00:31:48 No significant changes Electronically Signed On 05-15-2020 19:36:22 DIRECTOR OF REVENUE by ADDIE PUENTE [id number]
--- NOTE | 2020-05-15 06:23 | PC.NURSE ---
Patient's heart rate dropping to low 30s while in a deep sleep. When awake heart rate increased back to mid to upper 50s. Patient denies any discomforts presently. Informed Dr Garcia with no new orders received at this time.
[2020-05-15 07:35] VITALS: BP 138/72; PULSE 55; RESP 18; TEMP 36.7; O2SAT 97
[2020-05-15] MEDS: cholecalciferol (vitamin D3) 1,000 unit Tablet 2000 UNIT PO (09:45)
[2020-05-15] MEDS: atorvastatin 40 mg Tablet PO (09:45)
[2020-05-15] MEDS: aspirin 81 mg EC Tablet PO (09:45)
[2020-05-15] MEDS: pantoprazole DR 40 mg Tablet PO (09:46)
[2020-05-15 10:59] VITALS: BP 113/51; PULSE 53; RESP 20; TEMP 36.8; O2SAT 99
--- NOTE | 2020-05-15 11:55 | PM.DCS ---
Discharge Providers Date of Admission: 05/14/20 16:50 Date of Discharge: May 15, 2020 Attending Provider at Admission: Chucky Pleitez MD Attending Provider at Discharge: Chucky Pleitez MD Diagnoses at Discharge Discharge Diagnosis (1) Left-sided cerebrovascular accident (CVA): Status: Acute (2) Arrhythmia: Status: Acute (3) Hypomagnesemia: Status: Acute (4) Hypokalemia: Status: Acute (5) Hypocalcemia: Status: Acute (6) Hypertension: Status: Acute Reason for Visit Reason for Visit: possible stroke Hospital Course Discharge Summary: Temi Moulton is a 59 year old female with no significant past medical history, history of smoking, who presents to [facility] due to a 24-hour history of right-sided blurry vision, right lower extremity heaviness, right arm paresthesias, perioral numbness, generalized weakness. Patient tells me that she does not have health insurance, has not seen a physician in many years. Patient was admitted to [facility] for left-sided cerebrovascular accident, she is out of TPA window, out of window for endovascular procedure, NIH on arrival was 2, persistent symptoms was right facial droop, mild slurring of her speech, CT of the head was negative for intracranial hemorrhage or acute stroke, no acute A. fib events on EKG or on telemetry, CTA of the head and neck showed no large artery occlusion or stenosis. Admitted to the cardiac stepdown unit, received aspirin, statin, allow for permissive hypertension, received IV fluids. On day of discharge, patient had minimal right facial droop, no slurring of her speech. Patient was discharged on aspirin 81 mg daily, atorvastatin 40 mg daily, advised to quit smoking, advised that she were to have recurrent strokelike symptoms come back to the emergency room or call 911. Hypertension, in the ER, patient was quite hypertensive, we will allow for permissive hypertension during hospitalization, her blood pressure on the day of discharge was fairly normotensive. I advised patient to check blood twice daily, bring blood pressure logs to her primary care physician's office, follow with primary care physician in one 1 week. In addition I have prescribed her Norvasc 5 mg daily, to be started if her systolic blood pressure greater than 130 or diastolic blood pressure greater than 80. If her blood pressures continue to be greater than 150/80, follow-up with primary care physician sooner. Initially on hospitalization, she was found to be hypokalemic potassium 2.4, calcium 5.5, magnesium 1.3. Received minimal replacement, surprisingly her potassium/magnesium/calcium level significantly rebounded to normal, without any further replacement. Her ionized calcium was within normal limits. She had no muscle spasms, no EKG changes. Thus, I am questioning the validity of initial blood draw, repeat blood draws have all been normal. Her PTH is in the higher end of normal, vitamin D levels was low. So she does have significant vitamin D deficiency. Rheumatologic profile is pending. I will have patient follow-up with primary care provider in 1 week for redraw of serum electrolytes, no replacement was provided on discharge. She was advised if she were to have recurrent perioral numbness or muscle spasms, or chest pain or palpitation go to the emergency room. Patient was also found to have pulmonary nodules on imaging, 3 mm upper lobe, given her smoking history she is advised to quit smoking, and follow-up with the shot blast equipment operator in 1 to 3 months for repeat imaging. Patient was also found to have a 2.1 cm left intraparotid lymph node or possible mass, inflammatory versus neoplastic, patient states that she has had this for years, it typically shrinks and enlarges if she has an infection, it does not bother her, on examination it felt a bit stiff, nontender. I I will have patient follow-up with Dr. Arana for evaluation for parotid tumor or possible neoplasm Physical Exam Const: COMMON NORMALS: no acute distress and patient oriented x3 GENERAL APPEARANCE: cooperative and comfortable HENMT: COMMON NORMALS: normocephalic HEAD & SCALP: normocephalic OTHER: Mild right facial droop Eye: COMMON NORMALS: Equal, round and reactive pupils present and EOMs intact bilaterally PUPIL: Yes Equal, round and reactive pupils present Neck/C-Spine: COMMON NORMALS: full ROM, no lymphadenopathy, no JVD and Thyroid normal THYROID: Thyroid normal Lymph: LYMPHATIC: lymphadenopathy (Bilateral cervical lymphadenopathy) Resp: COMMON NORMALS: normal respiratory effort, No retractions, No use of accessory muscles and clear to auscultation bilaterally AUSCULTATION: clear to auscultation bilaterally Cardio: COMMON NORMALS: no JVD, regular rate, regular rhythm, S1 normal heart sound present, S2 normal heart sound present, No gallops present (Cardio), No clicks present (Cardio) and No murmurs present (Cardio) RATE: regular rate RHYTHM: regular rhythm HEART SOUNDS: S1 normal heart sound present and S2 normal heart sound present GI: COMMON NORMALS: Normal to inspection, nondistended, normoactive bowel sounds present, Soft to palpation, non-tender and No hepatosplenomegaly present PALPATION: Yes Soft to palpation and Yes No hepatosplenomegaly present Extremity: COMMON NORMALS: normal to inspection, full ROM and no pedal edema Neuro: COMMON NORMALS: patient oriented x3, CN's II-XII intact bilaterally, moves all extremities and no focal motor deficits OTHER: Minimal right facial droop still present Psych: COMMON NORMALS: mental status grossly normal, Normal thought process present and cooperative THOUGHT PROCESS: Normal thought process present Discharge Data Data Completed and Pending: Completed Studies During Hospitalization Category Date Time Status CT angio headneck * 52407/[id number] Urge nt Cat Scan 05/14/20 17:[address] head wo con* 7 [id number] Stat Cat Scan 05/14/20 14:29 Completed XR chest 1V rosanna ble [id number] Stat Exams 05/14/20 14:29 Completed [place] soft tissue he ad neck [id number] Rout ine Ultrasound 05/15/20 19:45 Completed Pending at discharge Category Date Time Status HEIDI Profile Rheum atology Stat Lab 05/14/20 17:15 Received Calcium, 24 Hour Urine Stat Lab 05/14/20 20:20 Ordered Complete Blood Co unt w/Auto AM LABS Lab 05/16/20 04:00 Ordered Complete Blood Co unt w/Auto AM LABS Lab 05/17/20 04:00 Ordered Comprehensive Met abolic Panel AM LA BS Lab 05/16/20 04:00 Ordered Comprehensive Met abolic Panel AM LA BS Lab 05/17/20 04:00 Ordered Comprehensive Met abolic Panel Routi ne Lab 05/15/20 12:00 Ordered Ionized Calcium A M LABS Lab 05/16/20 04:00 Ordered Ionized Calcium A M LABS Lab 05/17/20 04:00 Ordered Magnesium 24 HR U rine Stat Lab 05/14/20 20:20 Ordered Magnesium AM LABS Lab 05/16/20 04:00 Ordered Magnesium AM LABS Lab 05/17/20 04:00 Ordered Magnesium Routine Lab 05/15/20 12:00 Ordered Osmolality Urine Stat Lab 05/14/20 14:34 Received Phosphorus AM LAB S Lab 05/16/20 04:00 Ordered Phosphorus AM LAB S Lab 05/17/20 04:00 Ordered Potassium, 24 Kayla r Urine Stat Lab 05/14/20 20:20 Ordered [facility] SARS-CoV-2 RNA Routine Lab 05/14/20 15:25 Received CV echo complete* [id number] Routine Ultrasound 05/15/20 19:45 Taken Labs from last 24 hours 05/15/20 05/15/20 05/15/20 04:13 04:13 04:13 WBC 8.4 Corrected WBC RBC 4.92 Hgb 14.7 D Hct 44.9 D MCV 91.3 MCH 29.9 MCHC 32.7 RDW 12.6 Plt Count 258 MPV 10.0 Gran % Neut % (Auto) 46.5 Lymph % (Auto) 43.0 Bland % (Auto) 5.8 Eos % (Auto) 3.7 Baso % (Auto) 0.6 Neut # (Auto) 3.91 Lymph # (Auto) 3.6 Bland # (Auto) 0.5 Eos # (Auto) 0.3 Baso # (Auto) 0.1 Absolute Gran (aut o) Nucleated RBC % (a uto) 0 Nucleated RBCs # 0.0 ESR PT INR APTT Sodium 139 Potassium 4.6 Chloride 104 Carbon Dioxide 24 Anion Gap 15.6 BUN 10 Creatinine 0.6 GFR Calculation 102.7 Glucose 102 Estimat Average Gl ucose Hemoglobin A1c Calculated Osmolal ity 287 Calcium 9.3 Ionized Calcium Me as 1.2 Phosphorus 4.2 D Magnesium 2.1 Total Bilirubin 0.4 AST 58 H ALT 65 H Alkaline Phosphata se 94 Creatine Kinase Troponin T Gen 5 n g/L 6 Troponin T Baselin e Troponin T 120 Min comanche Delta Troponin T Troponin T Hi Sens 6Hr Troponin T Hi Sens 6Hr Delta C-Reactive Protein Total Protein 6.0 L Albumin 3.9 Globulin 2.1 Triglycerides 246 H Cholesterol 249 H LDL Cholesterol, C alc 172 H HDL Cholesterol 28 L LDL/HDL Ratio 6.14 H Cholesterol/HDL Ra richmond 8.89 H 25-OH Vitamin D To macy TSH PTH Intact Calcium (PTH Intac t) Urine Color Urine Appearance Urine pH Ur Specific Gravit y Urine Protein Urine Glucose (UA) Urine Ketones Urine Blood Urine Nitrate Urine Bilirubin Urine Urobilinogen Ur Leukocyte Damari ase Urine RBC Urine WBC Ur Squamous Epith Cells Amorphous Sediment Urine Bacteria Urine Osmolality Ur Random Sodium Ur Random Potassiu m Ur Random Chloride Ur Random Calcium Urine Opiates Scre en Ur Barbiturates Sc reen Ur Phencyclidine S crn Ur Amphetamines Sc reen U Benzodiazepines Scrn Urine Cocaine Scre en U Marijuana (THC) Screen HEIDI IFA Animal Tis Res KYRA-1 Antibody SS-A Antibody Sm (Leigh) 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 Antibody Scl-70 Antibody Anti-ds DNA IgG (C rith) Centromere B Antib lolly Thyroid Peroxidase Ab Complement C3c Complement C4c CH50 [facility] [place] SARS-CoV-2 RNA (RT -PCR) SARS-CoV-2 Ag (Rap id) 05/15/20 05/15/20 05/15/20 01:28 MANAGER TECHNOLOGY 01:28 MANAGER TECHNOLOGY 01:28 MANAGER TECHNOLOGY WBC Cancelled Corrected WBC Cancelled RBC Cancelled Hgb Cancelled Hct Cancelled MCV Cancelled MCH Cancelled MCHC Cancelled RDW Cancelled Plt Count Cancelled MPV Cancelled Gran % Cancelled Neut % (Auto) Cancelled Lymph % (Auto) Cancelled Bland % (Auto) Cancelled Eos % (Auto) Cancelled Baso % (Auto) Cancelled Neut # (Auto) Cancelled Lymph # (Auto) Cancelled Bland # (Auto) Cancelled Eos # (Auto) Cancelled Baso # (Auto) Cancelled Absolute Gran (aut o) Cancelled Nucleated RBC % (a uto) Cancelled Nucleated RBCs # Cancelled ESR PT INR APTT Sodium Cancelled Potassium Cancelled Chloride Cancelled Carbon Dioxide Cancelled Anion Gap Cancelled BUN Cancelled Creatinine Cancelled GFR Calculation Cancelled Glucose Cancelled Estimat Average Gl ucose Hemoglobin A1c Calculated Osmolal ity Cancelled Calcium Cancelled Ionized Calcium Me as Cancelled Phosphorus Cancelled Magnesium Cancelled Total Bilirubin Cancelled AST Cancelled ALT Cancelled Alkaline Phosphata se Cancelled Creatine Kinase Troponin T Gen 5 n g/L Troponin T Baselin e Troponin T 120 Min comanche Delta Troponin T Troponin T Hi Sens 6Hr Troponin T Hi Sens 6Hr Delta C-Reactive Protein Total Protein Cancelled Albumin Cancelled Globulin Cancelled Triglycerides Cancelled Cholesterol Cancelled LDL Cholesterol, C alc Cancelled HDL Cholesterol Cancelled LDL/HDL Ratio Cancelled Cholesterol/HDL Ra richmond Cancelled 25-OH Vitamin D To macy TSH PTH Intact Calcium (PTH Intac t) Urine Color Urine Appearance Urine pH Ur Specific Gravit y Urine Protein Urine Glucose (UA) Urine Ketones Urine Blood Urine Nitrate Urine Bilirubin Urine Urobilinogen Ur Leukocyte Damari ase Urine RBC Urine WBC Ur Squamous Epith Cells Amorphous Sediment Urine Bacteria Urine Osmolality Ur Random Sodium Ur Random Potassiu m Ur Random Chloride Ur Random Calcium Urine Opiates Scre en Ur Barbiturates Sc reen Ur Phencyclidine S crn Ur Amphetamines Sc reen U Benzodiazepines Scrn Urine Cocaine Scre en U Marijuana (THC) Screen HEIDI IFA Animal Tis Res KYRA-1 Antibody SS-A Antibody Sm (Leigh) 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 Antibody Scl-70 Antibody Anti-ds DNA IgG (C rith) Centromere B Antib lolly Thyroid Peroxidase Ab Complement C3c Complement C4c CH50 [facility] [place] SARS-CoV-2 RNA (RT -PCR) SARS-CoV-2 Ag (Rap id) 05/14/20 05/14/20 05/14/20 22:14 20:07 20:07 WBC Corrected WBC RBC Hgb Hct MCV MCH MCHC RDW Plt Count MPV Gran % Neut % (Auto) Lymph % (Auto) Bland % (Auto) Eos % (Auto) Baso % (Auto) Neut # (Auto) Lymph # (Auto) Bland # (Auto) Eos # (Auto) Baso # (Auto) Absolute Gran (aut o) Nucleated RBC % (a uto) Nucleated RBCs # ESR PT INR APTT Sodium Potassium Chloride Carbon Dioxide Anion Gap BUN Creatinine GFR Calculation Glucose Estimat Average Gl ucose 128 Hemoglobin A1c 6.1 H Calculated Osmolal ity Calcium Ionized Calcium Me as Phosphorus Magnesium Total Bilirubin AST ALT Alkaline Phosphata se Creatine Kinase Troponin T Gen 5 n g/L Troponin T Baselin e 6 Troponin T 120 Min comanche 6.00 Delta Troponin T 0 Troponin T Hi Sens 6Hr Troponin T Hi Sens 6Hr Delta C-Reactive Protein Total Protein Albumin Globulin Triglycerides Cholesterol LDL Cholesterol, C alc HDL Cholesterol LDL/HDL Ratio Cholesterol/HDL Ra richmond 25-OH Vitamin D To macy TSH PTH Intact Calcium (PTH Intac t) Urine Color Urine Appearance Urine pH Ur Specific Gravit y Urine Protein Urine Glucose (UA) Urine Ketones Urine Blood Urine Nitrate Urine Bilirubin Urine Urobilinogen Ur Leukocyte Damari ase Urine RBC Urine WBC Ur Squamous Epith Cells Amorphous Sediment Urine Bacteria Urine Osmolality Ur Random Sodium Ur Random Potassiu m Ur Random Chloride Ur Random Calcium Urine Opiates Scre en Ur Barbiturates Sc reen Ur Phencyclidine S crn Ur Amphetamines Sc reen U Benzodiazepines Scrn Urine Cocaine Scre en U Marijuana (THC) Screen HEIDI IFA Animal Tis Res KYRA-1 Antibody SS-A Antibody Sm (Leigh) 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 Antibody Scl-70 Antibody Anti-ds DNA IgG (C rith) Centromere B Antib lolly Thyroid Peroxidase Ab Complement C3c Complement C4c CH50 [facility] [place] [facility] SARS-CoV-2 RNA (RT -PCR) SARS-CoV-2 Ag (Rap id) 05/14/20 05/14/20 05/14/20 20:07 20:07 17:15 WBC Corrected WBC RBC Hgb Hct MCV MCH MCHC RDW Plt Count MPV Gran % Neut % (Auto) Lymph % (Auto) Bland % (Auto) Eos % (Auto) Baso % (Auto) Neut # (Auto) Lymph # (Auto) Bland # (Auto) Eos # (Auto) Baso # (Auto) Absolute Gran (aut o) Nucleated RBC % (a uto) Nucleated RBCs # ESR PT INR APTT Sodium 135 L Potassium 4.5 Chloride 100 Carbon Dioxide 25 Anion Gap 14.5 BUN 11 Creatinine 0.5 GFR Calculation 126.7 Glucose 90 Estimat Average Gl ucose Hemoglobin A1c Calculated Osmolal ity 279 L Calcium 9.3 Ionized Calcium Me as Phosphorus Magnesium 2.5 H Total Bilirubin 0.5 AST 78 H ALT 77 H Alkaline Phosphata se 99 Creatine Kinase 96 Troponin T Gen 5 n g/L Troponin T Baselin e Troponin T 120 Min comanche Delta Troponin T Troponin T Hi Sens 6Hr Troponin T Hi Sens 6Hr Delta C-Reactive Protein Total Protein 6.7 D Albumin 4.2 Globulin 2.5 Triglycerides Cholesterol LDL Cholesterol, C alc HDL Cholesterol LDL/HDL Ratio Cholesterol/HDL Ra richmond 25-OH Vitamin D To macy TSH 1.49 PTH Intact Calcium (PTH Intac t) Urine Color Urine Appearance Urine pH Ur Specific Gravit y Urine Protein Urine Glucose (UA) Urine Ketones Urine Blood Urine Nitrate Urine Bilirubin Urine Urobilinogen Ur Leukocyte Damari ase Urine RBC Urine WBC Ur Squamous Epith Cells Amorphous Sediment Urine Bacteria Urine Osmolality Ur Random Sodium Ur Random Potassiu m Ur Random Chloride Ur Random Calcium Urine Opiates Scre en Ur Barbiturates Sc reen Ur Phencyclidine S crn Ur Amphetamines Sc reen U Benzodiazepines Scrn Urine Cocaine Scre en U Marijuana (THC) Screen HEIDI IFA Animal Tis Res KYRA-1 Antibody SS-A Antibody Sm (Leigh) 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 Antibody Scl-70 Antibody Anti-ds DNA IgG (C rith) Centromere B Antib lolly Thyroid Peroxidase Ab Complement C3c Complement C4c CH50 [facility] SARS-CoV-2 RNA (RT -PCR) SARS-CoV-2 Ag (Rap id) 05/14/20 05/14/20 05/14/20 17:15 17:15 17:15 WBC Corrected WBC RBC Hgb Hct MCV MCH MCHC RDW Plt Count MPV Gran % Neut % (Auto) Lymph % (Auto) Bland % (Auto) Eos % (Auto) Baso % (Auto) Neut # (Auto) Lymph # (Auto) Bland # (Auto) Eos # (Auto) Baso # (Auto) Absolute Gran (aut o) Nucleated RBC % (a uto) Nucleated RBCs # ESR 25 H PT INR APTT Sodium Potassium Chloride Carbon Dioxide Anion Gap BUN Creatinine GFR Calculation Glucose Estimat Average Gl ucose Hemoglobin A1c Calculated Osmolal ity Calcium Ionized Calcium Me as Phosphorus Magnesium Total Bilirubin AST ALT Alkaline Phosphata se Creatine Kinase Troponin T Gen 5 n g/L Troponin T Baselin e Troponin T 120 Min comanche Delta Troponin T Troponin T Hi Sens 6Hr Troponin T Hi Sens 6Hr Delta C-Reactive Protein Total Protein Albumin Globulin Triglycerides Cholesterol LDL Cholesterol, C alc HDL Cholesterol LDL/HDL Ratio Cholesterol/HDL Ra richmond 25-OH Vitamin D To macy TSH PTH Intact 62.9 Calcium (PTH Intac t) 9.4 Urine Color Urine Appearance Urine pH Ur Specific Gravit y Urine Protein Urine Glucose (UA) Urine Ketones Urine Blood Urine Nitrate Urine Bilirubin Urine Urobilinogen Ur Leukocyte Damari ase Urine RBC Urine WBC Ur Squamous Epith Cells Amorphous Sediment Urine Bacteria Urine Osmolality Ur Random Sodium Ur Random Potassiu m Ur Random Chloride Ur Random Calcium Urine Opiates Scre en Ur Barbiturates Sc reen Ur Phencyclidine S crn Ur Amphetamines Sc reen U Benzodiazepines Scrn Urine Cocaine Scre en U Marijuana (THC) Screen HEIDI IFA Animal Tis Res Pending KYRA-1 Antibody Pending SS-A Antibody Pending Sm (Leigh) Antibod y Pending 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 Antibody Pending Scl-70 Antibody Pending Anti-ds DNA IgG (C rith) Pending Centromere B Antib lolly Pending Thyroid Peroxidase Ab Pending Complement C3c Pending Complement C4c Pending CH50 [facility] [place] Pending SARS-CoV-2 RNA (RT -PCR) SARS-CoV-2 Ag (Rap id) 05/14/20 05/14/20 05/14/20 17:10 15:25 15:25 WBC Corrected WBC RBC Hgb Hct MCV MCH MCHC RDW Plt Count MPV Gran % Neut % (Auto) Lymph % (Auto) Bland % (Auto) Eos % (Auto) Baso % (Auto) Neut # (Auto) Lymph # (Auto) Bland # (Auto) Eos # (Auto) Baso # (Auto) Absolute Gran (aut o) Nucleated RBC % (a uto) Nucleated RBCs # ESR PT INR APTT Sodium Potassium Chloride Carbon Dioxide Anion Gap BUN Creatinine GFR Calculation Glucose Estimat Average Gl ucose Hemoglobin A1c Calculated Osmolal ity Calcium Ionized Calcium Me as 1.1 Phosphorus Magnesium Total Bilirubin AST ALT Alkaline Phosphata se Creatine Kinase Troponin T Gen 5 n g/L Troponin T Baselin e Troponin T 120 Min comanche Delta Troponin T Troponin T Hi Sens 6Hr Troponin T Hi Sens 6Hr Delta C-Reactive Protein 5.5 H Total Protein Albumin Globulin Triglycerides Cholesterol LDL Cholesterol, C alc HDL Cholesterol LDL/HDL Ratio Cholesterol/HDL Ra richmond 25-OH Vitamin D To macy 14 L TSH PTH Intact Calcium (PTH Intac t) Urine Color Urine Appearance Urine pH Ur Specific Gravit y Urine Protein Urine Glucose (UA) Urine Ketones Urine Blood Urine Nitrate Urine Bilirubin Urine Urobilinogen Ur Leukocyte Admari ase Urine RBC Urine WBC Ur Squamous Epith Cells Amorphous Sediment Urine Bacteria Urine Osmolality Ur Random Sodium Ur Random Potassiu m Ur Random Chloride Ur Random Calcium Urine Opiates Scre en Ur Barbiturates Sc reen Ur Phencyclidine S crn Ur Amphetamines Sc reen U Benzodiazepines Scrn Urine Cocaine Scre en U Marijuana (THC) Screen HEIDI IFA Animal Tis Res KYRA-1 Antibody SS-A Antibody Sm (Leigh) 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 Antibody Scl-70 Antibody Anti-ds DNA IgG (C rith) Centromere B Antib lolly Thyroid Peroxidase Ab Complement C3c Complement C4c CH50 [facility] [place] [facility] SARS-CoV-2 RNA (RT -PCR) Pending SARS-CoV-2 Ag (Rap id) Negative 05/14/20 05/14/20 05/14/20 14:35 14:35 14:35 WBC Corrected WBC RBC Hgb Hct MCV MCH MCHC RDW Plt Count MPV Gran % Neut % (Auto) Lymph % (Auto) Bland % (Auto) Eos % (Auto) Baso % (Auto) Neut # (Auto) Lymph # (Auto) Bland # (Auto) Eos # (Auto) Baso # (Auto) Absolute Gran (aut o) Nucleated RBC % (a uto) Nucleated RBCs # ESR PT 14.90 INR 1.14 APTT 27.4 Sodium 144 Potassium 2.4 L* Chloride 119 H Carbon Dioxide 18 L Anion Gap 9.4 BUN 8 Creatinine 0.3 L GFR Calculation 228.5 H Glucose 77 Estimat Average Gl ucose Hemoglobin A1c Calculated Osmolal ity 295 Calcium 5.5 L* Ionized Calcium Me as Phosphorus 2.0 L Magnesium 1.3 L Total Bilirubin 0.3 AST 38 H ALT 43 H Alkaline Phosphata se 57 Creatine Kinase Troponin T Gen 5 n g/L Troponin T Baselin e Troponin T 120 Min comanche Delta Troponin T Troponin T Hi Sens 6Hr Troponin T Hi Sens 6Hr Delta C-Reactive Protein Total Protein 4.0 L Albumin 2.5 L Globulin 1.5 Triglycerides Cholesterol LDL Cholesterol, C alc HDL Cholesterol LDL/HDL Ratio Cholesterol/HDL Ra richmond 25-OH Vitamin D To macy TSH PTH Intact Calcium (PTH Intac t) Urine Color Urine Appearance Urine pH Ur Specific Gravit y Urine Protein Urine Glucose (UA) Urine Ketones Urine Blood Urine Nitrate Urine Bilirubin Urine Urobilinogen Ur Leukocyte Damari ase Urine RBC Urine WBC Ur Squamous Epith Cells Amorphous Sediment Urine Bacteria Urine Osmolality Ur Random Sodium Ur Random Potassiu m Ur Random Chloride Ur Random Calcium Urine Opiates Scre en Ur Barbiturates Sc reen Ur Phencyclidine S crn Ur Amphetamines Sc reen U Benzodiazepines Scrn Urine Cocaine Scre en U Marijuana (THC) Screen HEIDI IFA Animal Tis Res KYRA-1 Antibody SS-A Antibody Sm (Leigh) 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 Antibody Scl-70 Antibody Anti-ds DNA IgG (C rith) Centromere B Antib lolly Thyroid Peroxidase Ab Complement C3c Complement C4c CH50 [facility] [place] SARS-CoV-2 RNA (RT -PCR) SARS-CoV-2 Ag (Rap id) 05/14/20 05/14/20 05/14/20 14:35 14:34 14:34 WBC 6.2 Corrected WBC RBC 3.49 L Hgb 10.6 L Hct 33.0 L MCV 94.6 MCH 30.4 MCHC 32.1 RDW 12.6 Plt Count 172 MPV 9.2 Gran % Neut % (Auto) 48.0 Lymph % (Auto) 40.8 Bland % (Auto) 6.6 Eos % (Auto) 2.6 Baso % (Auto) 0.6 Neut # (Auto) 2.98 Lymph # (Auto) 2.5 Bland # (Auto) 0.4 Eos # (Auto) 0.2 Baso # (Auto) 0.0 Absolute Gran (aut o) Nucleated RBC % (a uto) 0 Nucleated RBCs # 0.0 ESR PT INR APTT Sodium Potassium Chloride Carbon Dioxide Anion Gap BUN Creatinine GFR Calculation Glucose Estimat Average Gl ucose Hemoglobin A1c Calculated Osmolal ity Calcium Ionized Calcium Me as Phosphorus Magnesium Total Bilirubin AST ALT Alkaline Phosphata se Creatine Kinase Troponin T Gen 5 n g/L Troponin T Baselin e Troponin T 120 Min comanche Delta Troponin T Troponin T Hi Sens 6Hr Troponin T Hi Sens 6Hr Delta C-Reactive Protein Total Protein Albumin Globulin Triglycerides Cholesterol LDL Cholesterol, C alc HDL Cholesterol LDL/HDL Ratio Cholesterol/HDL Ra richmond 25-OH Vitamin D To macy TSH PTH Intact Calcium (PTH Intac t) Urine Color Urine Appearance Urine pH Ur Specific Gravit y Urine Protein Urine Glucose (UA) Urine Ketones Urine Blood Urine Nitrate Urine Bilirubin Urine Urobilinogen Ur Leukocyte Damari ase Urine RBC Urine WBC Ur Squamous Epith Cells Amorphous Sediment Urine Bacteria Urine Osmolality Pending Ur Random Sodium Ur Random Potassiu m Ur Random Chloride Ur Random Calcium 7.6 Urine Opiates Scre en Ur Barbiturates Sc reen Ur Phencyclidine S crn Ur Amphetamines Sc reen U Benzodiazepines Scrn Urine Cocaine Scre en U Marijuana (THC) Screen HEIDI IFA Animal Tis Res KYRA-1 Antibody SS-A Antibody Sm (Leigh) 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 Antibody Scl-70 Antibody Anti-ds DNA IgG (C rith) Centromere B Antib lolly Thyroid Peroxidase Ab Complement C3c Complement C4c CH50 [facility] SARS-CoV-2 RNA (RT -PCR) SARS-CoV-2 Ag (Rap id) 05/14/20 05/14/20 05/14/20 14:34 14:34 14:34 WBC Corrected WBC RBC Hgb Hct MCV MCH MCHC RDW Plt Count MPV Gran % Neut % (Auto) Lymph % (Auto) Bland % (Auto) Eos % (Auto) Baso % (Auto) Neut # (Auto) Lymph # (Auto) Bland # (Auto) Eos # (Auto) Baso # (Auto) Absolute Gran (aut o) Nucleated RBC % (a uto) Nucleated RBCs # ESR PT INR APTT Sodium Potassium Chloride Carbon Dioxide Anion Gap BUN Creatinine GFR Calculation Glucose Estimat Average Gl ucose Hemoglobin A1c Calculated Osmolal ity Calcium Ionized Calcium Me as Phosphorus Magnesium Total Bilirubin AST ALT Alkaline Phosphata se Creatine Kinase Troponin T Gen 5 n g/L Troponin T Baselin e Troponin T 120 Min comanche Delta Troponin T Troponin T Hi Sens 6Hr Troponin T Hi Sens 6Hr Delta C-Reactive Protein Total Protein Albumin Globulin Triglycerides Cholesterol LDL Cholesterol, C alc HDL Cholesterol LDL/HDL Ratio Cholesterol/HDL Ra richmond 25-OH Vitamin D To macy TSH PTH Intact Calcium (PTH Intac t) Urine Color Yellow Urine Appearance Clear Urine pH 5 Ur Specific Gravit y 1.010 Urine Protein Neg Urine Glucose (UA) Norm Urine Ketones Negative Urine Blood 2+ H Urine Nitrate Negative Urine Bilirubin Neg Urine Urobilinogen Norm Ur Leukocyte Damari ase Negative Urine RBC 0-4 H Urine WBC Rare Ur Squamous Epith Cells 0-4 H Amorphous Sediment Not Reportable Urine Bacteria Trace Urine Osmolality Ur Random Sodium 104 Ur Random Potassiu m 14 Ur Random Chloride 101 Ur Random Calcium Urine Opiates Scre en Negative Ur Barbiturates Sc reen Negative Ur Phencyclidine S crn Negative Ur Amphetamines Sc reen Negative U Benzodiazepines Scrn Negative Urine Cocaine Scre en Negative U Marijuana (THC) Screen Negative HEIDI IFA Animal Tis Res KYRA-1 Antibody SS-A Antibody Sm (Leigh) 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 Antibody Scl-70 Antibody Anti-ds DNA IgG (C rith) Centromere B Antib lolly Thyroid Peroxidase Ab Complement C3c Complement C4c CH50 Classical Pat hway SARS-CoV-2 RNA (RT -PCR) SARS-CoV-2 Ag (Rap id) 05/14/20 01:28 WBC Corrected WBC RBC Hgb Hct MCV MCH MCHC RDW Plt Count MPV Gran % Neut % (Auto) Lymph % (Auto) Bland % (Auto) Eos % (Auto) Baso % (Auto) Neut # (Auto) Lymph # (Auto) Bland # (Auto) Eos # (Auto) Baso # (Auto) Absolute Gran (aut o) Nucleated RBC % (a uto) Nucleated RBCs # ESR PT INR APTT Sodium Potassium Chloride Carbon Dioxide Anion Gap BUN Creatinine GFR Calculation Glucose Estimat Average Gl ucose Hemoglobin A1c Calculated Osmolal ity Calcium Ionized Calcium Me as Phosphorus Magnesium Total Bilirubin AST ALT Alkaline Phosphata se Creatine Kinase Troponin T Gen 5 n g/L Troponin T Baselin e Troponin T 120 Min comanche Delta Troponin T Troponin T Hi Sens 6Hr Cancelled Troponin T Hi Sens 6Hr Delta Cancelled C-Reactive Protein Total Protein Albumin Globulin Triglycerides Cholesterol LDL Cholesterol, C alc HDL Cholesterol LDL/HDL Ratio Cholesterol/HDL Ra richmond 25-OH Vitamin D To macy TSH PTH Intact Calcium (PTH Intac t) Urine Color Urine Appearance Urine pH Ur Specific Gravit y Urine Protein Urine Glucose (UA) Urine Ketones Urine Blood Urine Nitrate Urine Bilirubin Urine Urobilinogen Ur Leukocyte Damari ase Urine RBC Urine WBC Ur Squamous Epith Cells Amorphous Sediment Urine Bacteria Urine Osmolality Ur Random Sodium Ur Random Potassiu m Ur Random Chloride Ur Random Calcium Urine Opiates Scre en Ur Barbiturates Sc reen Ur Phencyclidine S crn Ur Amphetamines Sc reen U Benzodiazepines Scrn Urine Cocaine Scre en U Marijuana (THC) Screen HEIDI IFA Animal Tis Res KYRA-1 Antibody SS-A Antibody Sm (Leigh) 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 Antibody Scl-70 Antibody Anti-ds DNA IgG (C rith) Centromere B Antib lolly Thyroid Peroxidase Ab Complement C3c Complement C4c CH50 Classical Pat hway SARS-CoV-2 RNA (RT -PCR) SARS-CoV-2 Ag (Rap id) Vitals: Last Vital Signs Temp 98.2 F 05/15/20 10:59 Pulse 53 L 05/15/20 10:59 Resp 20 H 05/15/20 10:59 BP 113/51 05/15/20 10:59 Pulse Ox 99 05/15/20 10:59 Discharge Plan Discharge Patient Disposition: Home Condition: Stable Prescriptions: New atorvastatin 40 mg Tablet 40 mg PO DAILY 30 Days Qty: 30 RF: 0 aspirin 81 mg Tablet,Delayed Release (Dr/Ec) 81 mg PO DAILY 30 Days Qty: 30 RF: 0 cholecalciferol (vitamin D3) 25 mcg (1,000 unit) Tablet 2,000 unit PO DAILY 30 Days Qty: 30 RF: 0 amlodipine [Norvasc] 5 mg tablet 5 mg PO DAILY 30 Days Qty: 30 RF: 0 No Action No Known Home Medications RF: 0 Discharge Orders: Discharge Order (Routine); Ordered 05/15/20 Ordered By: Chucky Pleitez Other Ambulatory Orders: Comprehensive Metabolic Panel (Routine) Timeframe: 1 Week Facility: [facility] - Location: Lab - Main Lab Ordered By: Chucky Pleitez Magnesium (Routine) Timeframe: 1 Week Facility: [facility] - Location: Lab - Main Lab Ordered By: Chucky Pleitez Referrals: Ranjeet Dillon MD [Physician] - 1 month Eliazar Arana MD [Physician] - 1-3 days (paroitd tumor) Discharge Diet: Cardiac Discharge Activity: Resume usual activity Patient Instructions: Aspirin (By mouth), Amlodipine (By mouth), Atorvastatin (By mouth), Cholecalciferol (By mouth), Hypokalemia, How to Stop Smoking (GEN), Cigarette Smoking and Your Health (GEN), Basic Carbohydrate Counting (GEN), Self Care Measures After a Stroke (DC), Hypocalcemia (DC), DASH Eating Plan (GEN), Hypertension (DC), Hypomagnesemia (DC), Quitting Smoking Activity Restrictions/Additional Instructions: -If you have recurrent strokelike symptoms please, call 911 or go to the emergency room -If your systolic blood pressures greater than 130 or diastolic blood pressures greater than 80, start amlodipine 5 mg daily -Follow-up with primary care in 1 week for redraw of CMP, mag, potassium -Continue vitamin D - for your parotid gland tumor, 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
[2020-05-15 13:18] LABS: Alanine Aminotransferase 64 U/L (0-33); Albumin Level 4.1 g/dL (3.5-5.2); Alkaline Phosphatase 98 IU/L (35-105); Aspartate Amino Transferase 55 U/L (0-32); Blood Urea Nitrogen 11 mg/dL (6-20); Calcium 9.5 mg/dL (8.5-10.5); Carbon Dioxide 24 mmol/L (22-29); Chloride 102 mmol/L (98-107); Globulin 2.8 g/dL (1.3-4.6); Glomerular Filtration Rate 126.7 mL/min (90-130); Glucose 163 mg/dL (65-115); Magnesium 1.9 mg/dL (1.7-2.3); Osmolality Calculated 289 mOsm/kg (285-295); Sodium 138 mmol/L (136-145); Total Bilirubin 0.5 mg/dL (0.15-1.2); Total Protein 6.9 g/dL (6.6-8.7)
[2020-05-15 14:48] LABS: Quest SARS-CoV-2 RNA NOT DETECTED (NOT DETECTED)
[2020-05-15 14:51] VITALS: BP 145/78; PULSE 63; RESP 15; TEMP 36.6; O2SAT 94
--- NOTE | 2020-05-15 15:00 | PC.NURSE ---
Discharge to home Instructed pt to follow-up with her the doctors as scheduled. Educated pt on new meds dosing, timing, possible side effects and frequency. Stroke education and carb counting and encourage heart healthy and exercise to pt. Discharge papers provided to pt. Ushered via wheelchair.
--- NOTE | 2020-05-15 19:45 | USCV_ITS ---
Temi Moulton Age: 59 Gender: F : 1960 Exam Date: 05/15/2020 07:00 Ordering Phys: Chucky Pleitez MD Technologist: Casandra Gandhi Exam Location: [facility] [place] Indication: Stroke BP: 112 / 64 HR: 47 Rhythm: Sinus Technical Quality: Technically difficult study MEASUREMENTS (Male / Female) Normal Values 2D ECHO LV Diastolic Diameter PLAX 3.2 cm 4.2 - 5.9 / 3.9 - 5.3 cm LV Systolic Diameter PLAX 1.7 cm LV Chamber Size 4.1 cm IVS Diastolic Thickness 1.6 cm 0.6 - 1.0 / 0.6 - 0.9 cm IVS Systolic Thickness 1.7 cm LVPW Diastolic Thickness 1.3 cm 0.6 - 1.0 / 0.6 - 0.9 cm LVPW Systolic Thickness 1.4 cm RV Chamber Size 2.9 cm LVOT Diameter 1.9 cm LV Ejection Fraction 2D Teich 80.9 % LA Diameter 3.7 cm LA Width 3.1 cm LA Height 4.4 cm RA Width 2.7 cm RA Height 4.5 cm Aorta at Sinotubular Diameter 2.7 cm M-MODE LV Diastolic Diameter MM 3.6 cm 4.2 - 5.9 / 3.9 - 5.3 cm LV Systolic Diameter MM 2.1 cm LV Ejection Fraction MM Teich 72.5 % IVS Diastolic Thickness MM 1.3 cm 0.6 - 1.0 / 0.6 - 0.9 cm IVS Systolic Thickness MM 1.6 cm LVPW Diastolic Thickness MM 1.4 cm 0.6 - 1.0 / 0.6 - 0.9 cm LVPW Systolic Thickness MM 1.4 cm RV Diastolic Diameter MM 1.2 cm Aortic Annulus Diameter 3.1 cm LA Ao Ratio MM 1.4 MV E Point Septal Separation 0.6 cm DOPPLER AV Peak Velocity 121.0 cm/s LVOT Peak Velocity 80.0 cm/s AV Area Cont Eq vti 1.7 cm squared AV Area Cont Eq pk 1.9 cm squared MV Area PHT 3.9 cm squared Mitral E to A Ratio 1.8 MV E' Velocity 49.0 cm/s Mitral E to MV E' Ratio 8.2 Mitral E to LV E' Lateral Ratio 7.3 Mitral E to LV E' Septal Ratio 9.2 TV Peak E Velocity 58.0 cm/s Right Atrial Pressure 3.0 mmHg FINDINGS Left Ventricle Normal left ventricular cavity size. Normal left ventricular systolic function. No regional wall motion abnormalities. Left ventricular ejection fraction is estimated at 60 %. Normal diastolic function. Right Ventricle The right ventricle is normal in size and function. RVSP could not be calculated due to incomplete tricuspid regurgitation velocity profile. Right Atrium The right atrium is normal in size. Left Atrium The left atrium is normal in size. Mitral Valve Structurally normal mitral valve without significant stenosis or prolapse. There is no mitral regurgitation. Aortic Valve Structurally normal aortic valve without significant sclerosis or stenosis. There is no aortic regurgitation. Tricuspid Valve Structurally normal tricuspid valve without significant stenosis or regurgitation. Pulmonic Valve Structurally normal pulmonic valve without significant stenosis. There is no pulmonic regurgitation. Pericardium Normal pericardium without effusion. Aorta Normal ascending aorta dimension. CONCLUSIONS 1-Normal left ventricular cavity size. Normal left ventricular systolic function. No regional wall motion abnormalities. Left ventricular ejection fraction is estimated at 60 %. Normal diastolic function. 2-There is no pericardial effusion. 3-No significant valve abnormalities. 4-The right ventricle is normal in size and function. RVSP could not be calculated due to incomplete tricuspid regurgitation velocity profile. 5-There is no pericardial effusion. 6-Right atrial pressure is around 5 mm of mercury. 7-There are no prior echocardiogram studies to compare. Silva Meier MD (Electronically Signed) Final Date: 15 May 2020 16:03 S
--- NOTE | 2020-05-15 19:45 | USR_ITS ---
PROCEDURE INFORMATION: Exam: US Soft Tissue Head and Neck, Soft Tissue Exam date and time: 05/15/2020 7:49 AM Age: 59 years old Clinical indication: Abnormal findings; Abnormal radiologic study of neck; Additional info: US bilaeral neck, lmphadenoapthy, TECHNIQUE: Imaging protocol: Real-time ultrasound scan of the head and neck with image documentation. Exam focused on the soft tissue in the region of clinical concern. COMPARISON: Neck CTA 05/14/20 FINDINGS: Submandibular/Parotid glands: Right parotid gland measures 5.7 x 3.0 x 4.8 cm. Left parotid gland measures 5.5 x 3.5 x 3.7 cm. Bilateral linear echogenic foci in the parotid glands, which were not reproduced on earlier CT, and therefore not believed to be of acute clinical significance. Lymph nodes: Bilateral subcentimeter lymph nodes. 2.1 x 1.6 x 1.7 cm left parotid lymph node visualized on CT, was not visualized on the current study. Soft tissues: No fluid collections. US/US soft tissue head neck [id number] IMPRESSION: Bilateral subcentimeter lymph nodes. 2.1 x 1.6 x 1.7 cm left parotid lymph node visualized on CT, was not visualized on the current study.
[2020-05-16 12:23] LABS: COMPLEMENT COMPONENT C3C 189 mg/dL (83-193); COMPLEMENT COMPONENT C4C 35 mg/dL (15-57)
[2020-05-16 13:53] LABS: ANA SCREEN, IFA NEGATIVE (NEGATIVE)
[2020-05-16 15:23] LABS: CENTROMERE B ANTIBODY <1.0 NEG AI (<1.0 NEG); JO-1 ANTIBODY <1.0 NEG AI (<1.0 NEG); RNP ANTIBODY <1.0 NEG AI (<1.0 NEG); SCL-70 ANTIBODY <1.0 NEG AI (<1.0 NEG); SJOGREN'S ANTIBODY (SS-A) <1.0 NEG AI (<1.0 NEG); SM ANTIBODY <1.0 NEG AI (<1.0 NEG); THYROID PEROXIDASE ANTIBODIES 1 IU/mL (<9)
[2020-05-16 15:53] LABS: Osmolality Urine 419 mOsm/kg (50-1200)
--- NOTE | 2020-05-16 16:57 | PC.RESP ---
Smoking Cessation information sent to patient.
[2020-05-19 02:02] LABS: DNA AB (DS) CRITHIDIA,IFA NEGATIVE (NEGATIVE)
== END 2020-05-15 15:44 | disposition home or self-care (01) | DRG 65 ==
LOC: ER 14:36 → CSU 19:13
PROVIDERS: Family Medicine; Admitting Provider Family Medicine; Visit Provider Family Medicine
DX: I63.9 Cerebral infarction, unspecified (principal); G81.91 Hemiplegia, unspecified affecting right dominant side; I10 Essential (primary) hypertension; E83.51 Hypocalcemia; E87.6 Hypokalemia; E83.42 Hypomagnesemia; H53.8 Other visual disturbances; R47.81 Slurred speech; R91.8 Other nonspecific abnormal finding of lung field; Z79.891 Long term (current) use of opiate analgesic; F17.210 Nicotine dependence, cigarettes, uncomplicated
CPT/HCPCS: 12345; 36415; 70450; 70496; 70498; 71045; 76536; 80053; 80061; 80306; 81001; 82306; 82310; 82330; 82340; 82436; 82550; 83036; 83735; 83935; 83970; 84100; 84133; 84300; 84443; 84484; 85025; 85610; 85651; 85730; 86140; 87426; 87635; 93005; 93306; 96372; 97161; 97165; 99284; J0610; J1650; J3475; J3480; J7030; Q9967

== ENCOUNTER 2020-11-22 14:33 | Outpatient (CLI) | payer BC, MEDICAID, SELFPAY ==
--- NOTE | 2020-11-22 14:40 | CT_ITS ---
WS: [id number] CT NECK TECHNIQUE: Contrast-enhanced CT of the neck with coronal and sagittal reformatted images. CLINICAL INFORMATION: LYMPHADENOPATHY COMPARISON: Ultrasound May 15, 2020 and CTA May 14, 2020 DLP: 647.[address] scans at [facility] use at least one of these dose optimization techniques: automat ed exposure control; mA and/or kV adjustment per patient size (includes targeted exams where dose is matched to clinical indication); or iterative reconstruction. FINDINGS: Lobulated enhancing well-circumscribed intraparotid lesion measuring approximately 1.5 x 2.3 x 1.5 cm . This is not significantly changed since CTA May 14, 2020. Additional enhancing smaller left int raparotid nodule measuring 6 mm Additional enhancing RIGHT posterior periparotid nodule measuring 9 mm Partially visualized intracranial contents are normal. Mastoid air cells are well aerated. A few rete ntion cysts in the maxillary sinuses. Mild mucosal thickening ethmoid air cells. Normal parapharyngea l fat. Normal posterior nasopharynx. Normal submandibular glands. No evidence of supraglottic or glot tic mass. Lung apices are well aerated. Mild spondylitic changes cervical spine. CT/CT neck w con* [id number] IMPRESSION: 1. Again seen is the lobulated enhancing LEFT intraparotid lesion measuring 1. 5 x 2.3 x 1.5 CM. 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 Recommend ENT consultation. 2. Additional enhancing smaller LEFT intraparotid nodule measuring 6 mm. 3. Additional enhancing RIGHT posterior periparotid nodule measuring 9 mm 4. Normal submandibular glands. 5. No cervical lymphadenopathy. 6. No supraglottic or glottic mass.
[2020-11-22] MEDS: iohexol 300 mg/mL 100 mL Btl IV (15:42)
== END 2020-11-22 14:34 | disposition home or self-care (01) ==
LOC: RADWPI 14:38
PROVIDERS: Visit Provider Nurse Practitioner Family
DX: R59.1 Generalized enlarged lymph nodes (principal)
CPT/HCPCS: 70491; Q9967

== ENCOUNTER → 2023-11-26 10:13 | Outpatient (BNVA) | payer BC, MEDICAID, SELFPAY | PROVIDERS: Visit Provider Nurse Practitioner Family | DX: M25.571 Pain in right ankle and joints of right foot (principal); M79.89 Other specified soft tissue disorders | CPT/HCPCS: 73610 ==

== ENCOUNTER → 2024-02-05 11:51 | Outpatient (BNVA) | payer BC, MEDICAID, SELFPAY | PROVIDERS: Visit Provider Nurse Practitioner Family | DX: R30.0 Dysuria (principal); K64.9 Unspecified hemorrhoids | CPT/HCPCS: 81000 ==

== ENCOUNTER → 2024-02-27 09:40 | Outpatient (BNVA) | payer BC, MEDICAID, SELFPAY | PROVIDERS: Visit Provider Family Medicine | DX: I10 Essential (primary) hypertension (principal); K62.5 Hemorrhage of anus and rectum | CPT/HCPCS: 80053; 80061; 83735; 85025 ==

== ENCOUNTER 2024-03-17 06:36 | Day surgery (SDC) | payer BC, MEDICAID, SELFPAY ==
[2024-03-17 06:54] VITALS: BP 144/81; PULSE 101; RESP 16; TEMP 36.3; O2SAT 97; BMI 35.6
--- NOTE | 2024-03-17 07:04 | ANES.PREANE2 ---
Pre-Anesthetic Assessment Height/Weight: Height 1.6 m Weight 91.172 kg Temp Pulse Resp BP Pulse Ox O2 Del Method 97.3 F L 101 H 16 144/81 97 Room Air 03/17/24 06:54 03/17/24 06:54 03/17/24 06:54 03/17/24 06:54 03/17/24 06:54 03/17/24 06:54 Preop Diagnosis: Hematachezia Operation Date: 03/17/24 07:40 Proposed Procedures p Colonoscopy 85150, K92.1(Not Applicable) - González Blanchard MD Was Beta Sonja taken within 24 hours: N/A Was Clonidine taken within 24 hours: N/A Last intake: Intake Last Liquid Date 03/16/24 Last Liquid Time 18:00 Last Solid Date 03/15/24 Last Solid Time 17:00 Social Tobacco 1 pack(s) per day Exam alert, oriented x 3, clear to auscultation bilaterally and regular rate & rhythm Airway Submandibular: within normal limits Cervical ROM: within normal limits Mallampati: Class II Dentition: full History/ROS No significant history except as noted and No significant complaints Pulmonary Chronic Obstructive Pulmonary Disease (probable, but denies) CV/HEM None reported None reported Hepatic None reported GI None reported Metabolic None reported Musc/skel None reported Neuropsych None reported Anesthetic Plan ASA status: 2 Anesthesia: Anesthesia Evaluation and MAC Risk of > 500 ml blood loss (7ml/kg in children): No Medications/Allergies Home Medications Medication Instructions Recorded Confirmed Last Taken Type aspirin 81 mg tablet,delayed 81 mg PO DAILY 11/26/23 03/17/24 03/16/24 History release (Adult Low Dose Aspirin) cholecalciferol (vitamin D3) 25 25 mcg PO DAILY 11/26/23 03/12/24 03/16/24 History mcg (1,000 unit) capsule amlodipine 5 mg tablet 5 mg PO DAILY 90 days #90 tabs 02/27/24 03/17/24 03/16/24 Rx atorvastatin 40 mg tablet 40 mg PO DAILY 90 days #90 tabs 02/27/24 03/12/24 03/16/24 Rx docusate sodium 100 mg capsule 100 mg PO BID #60 caps 02/27/24 03/12/24 03/16/24 Rx duloxetine 20 mg capsule,delayed 20 mg PO BID #60 caps 02/27/24 03/12/24 03/16/24 Rx release magnesium hydroxide 400 mg/5 mL 15 ml PO BID PRN constipation #355 02/27/24 03/12/24 03/16/24 Rx oral suspension (Milk of Magnesia) mL multivitamin 1 tab PO DAILY 03/06/24 03/12/24 03/16/24 History hydrocodone 5 mg-acetaminophen 325 1 tab PO QID PRN pain 14 days #56 03/08/24 03/12/24 03/16/24 Rx mg tablet tabs naloxone 4 mg/actuation nasal 1 spray intranasal Q3M PRN opioid 03/08/24 03/17/24 Unknown Rx spray (Narcan) overdose #2 ea Allergies Allergy/AdvReac Type Severity Reaction Status Date / Time clindamycin Allergy ADR-Itching Verified 03/12/24 08:35 [facility] Anesthesia Medical History HX: benign breast biopsy No pertinent past medical history Surgical History (Updated 03/06/24 @ 09:52 by JF De Souza) History of carpal tunnel surgery of right wrist Family History Mother CAD (coronary artery disease) Chronic kidney disease (CKD) Lupus Father CAD (coronary artery disease) Brother CAD (coronary artery disease) Sister CAD (coronary artery disease) Social History Smoking and tobacco/nicotine status: heavy tobacco/nicotine user Alcohol intake: never Substance/Drug Use: current Other substance/drug use details: Oxycodone for pain, does not prescribed Data Anesthesia Cardiac Studies: Echocardiogram Ultrasound 05/15/20
[2024-03-17] MEDS: sodium chloride 0.9% 1,000 ML 30 ML IV (07:09)
--- NOTE | 2024-03-17 07:39 | W.PM.OPSFHP ---
Same Day Surgery H&P Indication for Procedure/HPI DATE OF PROCEDURE: March 17, 2024 CHIEF COMPLAINT/INDICATIONFOR SURGICAL PROCEDURE: Hematochezia PREOP DIAGNOSIS: Hematachezia PLANNED PROCEDURE: Operation Date: 03/17/24 07:40 Proposed Procedures p Colonoscopy 33986, K92.1(Not Applicable) - González Blanchard MD Medications/Allergies* Home Medications Medication Instructions Recorded Confirmed Type aspirin 81 mg tablet,delayed 81 mg PO DAILY 11/26/23 03/17/24 History release (Adult Low Dose Aspirin) cholecalciferol (vitamin D3) 25 25 mcg PO DAILY 11/26/23 03/12/24 History mcg (1,000 unit) capsule multivitamin 1 tab PO DAILY 03/06/24 03/12/24 History Allergies/Adverse Reactions Allergy/AdvReac Type Severity Reaction Status Date / Time clindamycin Allergy ADR-Itching Verified 03/12/24 08:35 Current Medications: Generic Name Dose Route Start Last Admin Trade Name Freq PRN Reason Stop Dose Admin Sodium Chloride 1,000 mls @ 30 mls/hr 03/17/24 06:15 03/17/24 07:09 Sodium Chloride 0.9% IV 03/18/24 06:14 30 mls/hr .Q24H YVETTE Administration Pertinent History/Comorbid Conditions* Medical History (Updated 02/27/24 @ 16:56 by Alie Dougherty MD) HX: benign breast biopsy No pertinent past medical history Surgical History (Updated 05/14/20 @ 17:36 by Chucky Pleitez MD) History of carpal tunnel surgery of right wrist Family History (Updated 05/14/20 @ 17:37 by Chucky Pleitez MD) Lupus Mother CAD (coronary artery disease) Mother Father Brother Sister Chronic kidney disease (CKD) Mother Social History Smoking and tobacco/nicotine status: heavy tobacco/nicotine user Alcohol intake: never Substance/Drug Use: current Other substance/drug use details: Oxycodone for pain, does not prescribed Pertinent Exam Findings alert, oriented x 3 and regular rate & rhythm Abdomen soft, NT, ND Recommendations Surgery/Procedure today Other Plans: Proceed with colonoscopy Coding Level of Care Code Acute Code for Chg Fwd
[2024-03-17 08:22] VITALS: BP 100/53; PULSE 64; RESP 20; TEMP 37.2; O2SAT 99
[2024-03-17 08:34] VITALS: BP 131/71; PULSE 54; RESP 18; O2SAT 100
--- NOTE | 2024-03-17 09:05 | ANE.PACU2 ---
Inpatient post-anesthesia follow up: Airway intact: Yes Vital signs: Temperature 99 F Pulse Rate 54 Respiratory Rate 18 Blood Pressure 131/71 Pulse Oximetry 100 Oxygen Delivery Me thod Simple Mask Oxygen Flow Rate 3 Fraction of Inspir ed Oxygen Hydration adequate: Yes Nausea and vomiting: No Pain level: 1 Mental status: Baseline
== END 2024-03-17 09:05 | disposition home or self-care (01) ==
PROVIDERS: PCP Family Medicine; Visit Provider Student in an Organized Health Care Education/Training Program
PROC: 0DJD8ZZ Inspection of Lower Intestinal Tract, Via Natural or Artificial Opening Endoscopic (ICD-10-PCS; CPT 45378; principal; 2024-03-17 07:40)
DX: K92.1 Melena (principal); D12.2 Benign neoplasm of ascending colon; D12.5 Benign neoplasm of sigmoid colon; F17.200 Nicotine dependence, unspecified, uncomplicated; J44.9 Chronic obstructive pulmonary disease, unspecified; Z79.82 Long term (current) use of aspirin
CPT/HCPCS: 45385; 88305; J2704; J7030

== ENCOUNTER 2024-04-15 07:21 | Day surgery (SDC) | payer BC, MEDICAID, SELFPAY ==
[2024-04-15] VITALS (10 sets, daily range): BP systolic 150–165; BP diastolic 59–79; PULSE 59–90; RESP 12–17; TEMP 36.2–37.1; O2SAT 90–100; BMI 35.2
[2024-04-15] MEDS: sodium chloride 0.9% 1,000 ML 30 ML IV (07:57)
--- NOTE | 2024-04-15 08:38 | W.PM.OPSUD ---
Surgery/Procedure H&P Update DATE OF PROCEDURE: April 15, 2024 DATE H&P PERFORMED: 04/02/24 H&P UPDATE INFORMATION: I have reviewed H&P completed within last 30 days, I have examined patient prior to procedure and No changes to prior documentation CHANGES TO PREVIOUS DOCUMENTATION: We have had an extensive discussion about the risks and benefits of the surgery. She understand that she will not feel well for several weeks. She understands there is a risk of fecal incontinence as well as bleeding and anal sepsis. She wants to proceed. PLANNED PROCEDURE: Operation Date: 04/15/24 09:05 Proposed Procedures p Hemorrhoidectomy 61163, 90552, K64.9(Not Applicable) - González Blanchard MD
--- NOTE | 2024-04-15 08:55 | ANES.PREANE2 ---
Pre-Anesthetic Assessment Height/Weight: Height 5 ft 3 in Weight 199 lb Temp Pulse Resp BP Pulse Ox O2 Del Method 98.7 F 90 16 161/79 97 Room Air 04/15/24 07:32 04/15/24 07:32 04/15/24 07:32 04/15/24 07:32 04/15/24 07:32 04/15/24 07:32 Preop Diagnosis: Hemorrhoids Operation Date: 04/15/24 09:05 Proposed Procedures p Hemorrhoidectomy 19673, 38206, K64.9(Not Applicable) - González Blanchard MD Was Beta Sonja taken within 24 hours: N/A Was Clonidine taken within 24 hours: N/A Last intake: Intake Last Liquid Date 04/15/24 Last Liquid Time 06:00 Last Solid Date 04/13/24 Last Solid Time 11:00 Social No alcohol and No tobacco Exam alert, oriented x 3, clear to auscultation bilaterally and regular rate & rhythm Airway Submandibular: within normal limits Cervical ROM: within normal limits Mallampati: Class III Comments: Comments: Edentulous Anesthetic Plan ASA status: 3 Anesthesia: General Other: No prior issues with anesthesia NPO since midnight History of hypertension on amlodipine Current smoker On chronic hydrocodone Reports METs greater than 4 Labs reviewed 02/27/2024 Prior EKG showing sinus bradycardia Plan for GETA Medications/Allergies Home Medications Medication Instructions Recorded Confirmed Last Taken Type aspirin 81 mg tablet,delayed 81 mg PO DAILY 11/26/23 04/14/24 04/14/24 History release (Adult Low Dose Aspirin) cholecalciferol (vitamin D3) 25 25 mcg PO DAILY 11/26/23 04/14/24 04/14/24 History mcg (1,000 unit) capsule amlodipine 5 mg tablet 5 mg PO DAILY 90 days #90 tabs 02/27/24 04/14/24 04/14/24 Rx atorvastatin 40 mg tablet 40 mg PO DAILY 90 days #90 tabs 02/27/24 04/14/24 04/14/24 Rx docusate sodium 100 mg capsule 100 mg PO BID #60 caps 02/27/24 04/14/24 04/14/24 Rx duloxetine 20 mg capsule,delayed 20 mg PO BID #60 caps 02/27/24 04/14/24 04/14/24 Rx release magnesium hydroxide 400 mg/5 mL 15 ml PO BID PRN constipation #355 02/27/24 04/14/24 03/16/24 Rx oral suspension (Milk of Magnesia) mL multivitamin 1 tab PO DAILY 03/06/24 04/14/24 04/14/24 History naloxone 4 mg/actuation nasal 1 spray intranasal Q3M PRN opioid 03/08/24 04/14/24 Unknown Rx spray (Narcan) overdose #2 ea hydrocodone 5 mg-acetaminophen 325 1 tab PO BID PRN pain 14 days #28 04/07/24 04/14/24 04/15/24 Rx mg tablet tabs Allergies Allergy/AdvReac Type Severity Reaction Status Date / Time clindamycin Allergy ADR-Itching Verified 04/07/24 13:06 Current Medications Generic Name Dose Route Start Last Admin Trade Name Freq PRN Reason Stop Dose Admin Sodium Chloride 1,000 mls @ 30 mls/hr 04/15/24 07:30 04/15/24 07:57 Sodium Chloride 0.9% IV 04/16/24 07:29 30 mls/hr .Q24H YVETTE Administration PFSH Anesthesia Medical History (Updated 04/07/24 @ 13:45 by Alie Dougherty MD) Hx of colonic polyps HX: benign breast biopsy No pertinent past medical history Surgical History (Updated 03/06/24 @ 09:52 by JF De Souza) History of carpal tunnel surgery of right wrist Family History Mother CAD (coronary artery disease) Chronic kidney disease (CKD) Lupus Father CAD (coronary artery disease) Brother CAD (coronary artery disease) Sister CAD (coronary artery disease) Social History Smoking and tobacco/nicotine status: tobacco/nicotine user, details unknown Alcohol intake: never Substance/Drug Use: current Other substance/drug use details: Oxycodone for pain, does not prescribed Data Anesthesia Cardiac Studies: Echocardiogram Ultrasound 05/15/20
[2024-04-15] MEDS: ceFAZolin 2,000 mg SDV 2000 MG IVP (09:00)
[2024-04-15] MEDS: thrombin 5,000 unit SDV 5000 UNIT XX (09:35)
[2024-04-15] MEDS: lidocaine 1% 10 ML INJ XX (09:40)
[2024-04-15] MEDS: BUPivacaine 0.25% INJ 10 mL INJECTION (09:40)
--- NOTE | 2024-04-15 09:54 | W.PM.BPONFUL ---
Pathology: Rectal mass biopsy sent for permanent Implant(s): None Anesthesia: General Anesthesia Complications: None Brief history/preop diagnosis: 63-year-old female who had a history of hematochezia. Recently underwent a colonoscopy which was unremarkable except for prominent hemorrhoids. She was taken back to the operating room for exam under anesthesia and possible hemorrhoidectomy. Full operative report: Patient was consented. She understood risk and benefits and agreed to proceed to the operating room. Preoperative antibiotics were administered. General anesthesia was induced. Patient was placed in prone jackknife. Perineum was prepped using Betadine and draped in the usual sterile fashion. A digital rectal exam under anesthesia was performed and I noticed an indurated mass on the left side of the rectum which encompasses 30% of the circumference is located anteriorly. Mass was friable to touch. I placed a Lei retractor to further inspect the rectum. I confirmed the presence of the rectal mass at about 5 cm from the dentate line. I took several biopsies and sent them for permanent sections. I performed hemostasis successfully using electrocautery and I placed a Gelfoam with thrombin in the anal canal. Mesh panties were applied. Patient woke up from anesthesia without any complications. Condition: Stable Dispostion: Home
--- NOTE | 2024-04-15 11:36 | ANE.PACU2 ---
Inpatient post-anesthesia follow up: Airway intact: Yes Vital signs: Temperature 97.8 F Pulse Rate 59 Respiratory Rate 16 Blood Pressure 164/59 Pulse Oximetry 96 Oxygen Delivery Me thod Room Air Oxygen Flow Rate 3 Fraction of Inspir ed Oxygen Hydration adequate: Yes Nausea and vomiting: No Pain level: 1 Mental status: Baseline
[2024-04-21 10:36] LABS: Mismatch Repari Proteins-IHC See Report
== END 2024-04-15 11:36 | disposition home or self-care (01) ==
PROVIDERS: PCP Family Medicine; Visit Provider Student in an Organized Health Care Education/Training Program
PROC: (CPT 45399; principal; 2024-04-15 08:55)
DX: C20 Malignant neoplasm of rectum (principal); K92.1 Melena; I10 Essential (primary) hypertension; F17.200 Nicotine dependence, unspecified, uncomplicated; Z79.82 Long term (current) use of aspirin; K64.4 Residual hemorrhoidal skin tags; K64.8 Other hemorrhoids
CPT/HCPCS: 45399; 88305; 88341; 88342; J0690; J1100; J2250; J2405; J2704; J2710; J3010; J3490; J7030

== ENCOUNTER → 2024-06-16 12:04 | Outpatient (BNVA) | payer BC, MEDICAID, SELFPAY | PROVIDERS: PCP Family Medicine; Visit Provider Family Medicine | DX: I10 Essential (primary) hypertension (principal); R60.0 Localized edema; D49.0 Neoplasm of unspecified behavior of digestive system; Z09 Encounter for follow-up examination after completed treatment for conditions other than malignant neoplasm | CPT/HCPCS: 80048; 83880 ==